=== PATIENT | female | born 1945 | race Caucasian/White ===

== ENCOUNTER 2019-01-06 06:19 | Day surgery (SDC) | payer MEDICARE ==
[2019-01-06] MEDS ORDERED: Lactated Ringers 1,000 ML IV SCH (06:30)
[2019-01-06] MEDS ORDERED: DIPRIVAN 200 MG/20 ML IV ONE ×2 (08:15→08:48)
[2019-01-06] MEDS ORDERED: Ketamine HCl 50 MG/ML ONE (08:15)
--- NOTE | 2019-01-06 08:17 | HP ---
DATE OF SURGERY: 01/06/2019 ANTICIPATED PROCEDURE: Colonoscopy. HISTORY OF PRESENT ILLNESS: The patient had polyps in the past and presents for five year follow up. The patient also has history of breast cancer. PAST MEDICAL HISTORY: ALLERGIES: NONE. MEDICATIONS: Lisinopril. PAST SURGICAL HISTORY: Neck, back, open heart surgery. SOCIAL HISTORY: Negative. FAMILY HISTORY: Negative. REVIEW OF SYSTEMS: Diabetes. Heart disease. Hypertension. PHYSICAL EXAMINATION: VITAL SIGNS: Normal. CHEST: Clear. COR: Regular. ABDOMEN: Satisfactory. IMPRESSION: History of polyps and history of breast cancer. PLAN: Colonoscopy.
[2019-01-06] MEDS ORDERED: ROBINUL ONE (08:44)
[2019-01-06] MEDS ORDERED: ATROPINE SULFATE 1MG ONE (08:48)
[2019-01-06 09:37] VITALS: BP 125/83; PULSE 92; O2SAT 97
--- NOTE | 2019-01-06 10:04 | OP ---
SURGERY DATE/TIME: 01/06/2019 0832 PREOPERATIVE DIAGNOSIS: Polyps. POSTOPERATIVE DIAGNOSES: 1) One polyp. 2) Severe diverticulosis sigmoid PROCEDURES: 1) Colonoscopy complete to cecum. 2) Hot polypectomy x1. SURGEON: Royce Hinds M.D. ANESTHESIA: MAC. COMPLICATIONS: None. CONDITION: Stable. INDICATION: A patient requiring evaluation. DESCRIPTION OF PROCEDURE: Taken to endoscopy. MAC sedation provided. Excellent anesthesia was present. She did have bradycardia once during the procedure. Anal digital examination satisfactory. Scope advanced to the cecum. Base of cecum, ileocecal valve satisfactory. Just an inch above the ileocecal valve was an 8 mm polyp taken with hot biopsy forceps to extinction. On circumferential withdrawal ascending, hepatic, transverse, splenic, descending normal. Severe diverticulosis of sigmoid. Rectum and anus normal. IMPRESSION: One polyp. PLAN: Follow up in three years.
== END 2019-01-06 09:51 | disposition home or self-care (01) ==
LOC: SDC 06:19
PROVIDERS: ATTEND Surgery
DX: Z12.11 Encounter for screening for malignant neoplasm of colon (principal); D12.0 Benign neoplasm of cecum; K57.30 Diverticulosis of large intestine without perforation or abscess without bleeding; Z86.010 Personal history of colon polyps; Z85.3 Personal history of malignant neoplasm of breast; E11.9 Type 2 diabetes mellitus without complications; I10 Essential (primary) hypertension; I51.9 Heart disease, unspecified
CPT/HCPCS: 82962; 88305; 99100; J0461; J2704

== ENCOUNTER 2021-03-20 15:54 | Emergency (ER) | payer MEDICARE ==
[2021-03-20 16:27] VITALS: O2SAT 97
[2021-03-20] MEDS ORDERED: TORAdol 30 mg Injection IM ONE (16:43)
[2021-03-20] MEDS ORDERED: Adacel Vial IM ONE ×2 (16:43→16:45)
[2021-03-20] MEDS ORDERED: TORAdol 30 mg Injection ONE (16:45)
--- NOTE | 2021-03-20 16:49 | ERPHSYRPT ---
- History of Present Illness Source: patient Patient Subjective Stated Complaint: laceration to R lower leg Triage Nursing Assessment: pt to ED c/o laceration and pain to L lower leg. pt states she was moving a metal bed frame and dropped it on her leg. is on blood thinners. bleeding controlled on arrival. ambulatory on arrival from to bed with steady gate. swelling and bruising noted to outer R foot and 3 cm crescent shaped skin tear noted to R upper calf. rates 9/10 pain. "my toes feel kind of funny." color, temp, pulses, cap refil all WNL. Physician History: 75 yo wf w R posterior calf and R foot pain s/p blow w metal bed frame. Pt has a skin tear R posterior calf. Pt needs tetanus. She denies fall/New C,T, L-spine pain/head injury-LOC/chest pain/hip pain. Method of Injury: direct blow Occurred: just prior to arrival Quality: constant Severity of Pain-Max: mild Severity of Pain-Current: mild Lower Extremities Pain: leg: right, foot: right Modifying Factors: Improves With: movement Associated Symptoms: No unable to bear weight, No dizzy, No fainted, No seizure, No snapping sensation, No popping sensation Allergies/Adverse Reactions: No Known Drug Allergies Allergy (Verified 03/20/21 16:27) Home Medications: Clopidogrel Bisulfate 75 mg [PLAVIX 75 MG Tablet] 75 mg PO UD 01/13/15 [History] Furosemide [Lasix] 40 mg PO DAILY 01/13/15 [History] Hydrocodone/APAP 10/325 mg [[place] 10/325 MG TableT] 1 tab PO Q4HPRN PRN 01/13/15 [History] Insulin Regular, Human [Novolin R] 5 unit IJ BID 01/13/15 [History] Carvedilol [Coreg] 25 mg PO BID 07/25/15 [History] Tramadol HCl 50 mg [Ultram 50 mg] 50 mg PO TID 07/25/15 [History] Ferrous Sulfate 325 mg PO UD 12/31/18 [History] Insulin Degludec [Tresiba] 40 unit SQ HS 12/31/18 [History] Multivitamin/Iron/Folic Acid [Centrum Adults Tablet] 1 each PO DAILY 12/31/18 [History] Nitroglycerin 0.4 mg Tablet [Nitrostat 0.4 MG Tablet] 0.4 mg SL UD 12/31/18 [History] Rosuvastatin Calcium [Crestor] 5 mg PO DAILY 12/31/18 [History] lisinopriL [Zestril] 2.5 mg PO DAILY 12/31/18 [History] Hx Tetanus, Diphtheria Vaccination/Date Given: No Hx Influenza Vaccination/Date Given: Yes Hx Pneumococcal Vaccination/Date Given: Yes Immunizations Up to Date: Yes Travel Risk - International Travel Have you traveled outside of the country in past 3 weeks: No - Coronavirus Screening Are you exhibiting any of the following symptoms?: No Close contact with a COVID-19 positive Pt in past 14-21 Days: No - Vaccine Status Have you recieved a Covid-19 vaccination: Yes Construction 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: 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 - Vaccination Dates Date of 2cond Vaccination (if applicable): unknown - Review of Systems Constitutional: No Symptoms Eyes: No Symptoms Ears, Nose, & Throat: No Symptoms Respiratory: No Symptoms Cardiac: No Symptoms Abdominal/Gastrointestinal: No Symptoms Genitourinary Symptoms: No Symptoms Skin: No Symptoms Neurological: No Symptoms Psychological: No Symptoms, Hallucinations Hematologic/Lymphatic: No Symptoms Immunological/Allergic: No Symptoms - Past Medical History Pertinent Past Medical History: Yes Neurological History: No Pertinent History ENT History: No Pertinent History Cardiac History: Congestive Heart Failure, Myocardial Infarction ([place]) Respiratory History: No Pertinent History Endocrine Medical History: Diabetes Type II Musculoskeletal History: No Pertinent History GI Medical History: No Pertinent History History: No Pertinent History Psycho-Social History: No Pertinent History Female Reproductive Disorders: Breast Cancer Other Medical History: breast mastectomy shyam. 8yrs ago - Past Surgical History Past Surgical History: Yes Neuro Surgical History: No Pertinent History Cardiac: CABG, Cardiac Catheterization Respiratory: No Pertinent History Gastrointestinal: No Pertinent History Genitourinary: No Pertinent History Musculoskeletal: Orthopedic Surgery Female Surgical History: Hysterectomy, Mastectomy Other Surgical History: colonoscopy, shyam mastectomy 8 yrs ago,back ruptured disc in neck and back fusion - Social History Smoking Status: Never smoker Exposure to second hand smoke: No Drug Use: none Patient Lives Alone: No Significant Family History: no pertinent family hx - Female History Hx Now: No - Nursing Vital Signs Nursing Vital Signs: Initial Vital Signs Pulse Rate 87 03/20/21 16:15 Respiratory Rate 17 09/29/21 16:15 Blood Pressure 141/74 03/20/21 16:15 O2 Sat by Pulse Oximetry 97 03/20/21 16:15 Pain Scale Pain Intensity 6 Mildly hypertensive - Physical Exam General Appearance: no apparent distress Eyes, Ears, Nose, Throat Exam: normal ENT inspection, TMs normal, pharynx normal, moist mucous membranes Neck Exam: normal inspection, non-tender, supple, full range of motion, No Brudzinski, No Kernig's, No meningismus Cardiovascular/Respiratory Exam: chest non-tender, regular rate/rhythm, heart sounds normal, no respiratory distress, rales (Faint R base) Gastrointestinal/Abdominal Exam: non-tender, soft Back Exam: normal inspection, normal range of motion, No CVA tenderness, No vertebral tenderness Hips Exam: bilateral: non-tender, normal inspection, normal range of motion, no evidence of injury Legs Exam: right leg: soft tissue tenderness (Mild R calf ttp w small skin tear x2) Knees Exam: bilateral knee: non-tender, normal inspection, normal range of motion, no evidence of injury Ankle Exam: bilateral ankle: non-tender, normal inspection, normal range of motion, no evidence of injury Foot Exam: right foot: bone tenderness (R lateral foot/Mild edema/No deformity/Good pedal pulse, distal sensation, and capillary return) Neuro/Tendon Exam: normal sensation, normal motor functions, normal tendon functions, responds to pain, no evidence tendon injury, No motor deficit, No sensory deficit Mental Status Exam: alert, oriented x 3, cooperative Skin Exam: normal color, warm, dry SpO2 Interpretation: normal SpO2: 97 O2 Delivery: Room Air - Course Nursing assessment & vital signs reviewed: Yes - Radiology Exams Foot X-ray Interpretation: Interpreted by me (R foot neg per ER read) Lower Leg X-ray Interpretation: Interpreted by me (R tib-fib neg per ER read) Ordered Tests: Active Orders 24 hr Category Date Time Status FOOT (MINIMUM 3 VIEWS) Stat Exams 03/20/21 17:20 Taken LOWER LEG Stat Exams 03/20/21 16:42 Taken Medication Summary Discontinued Medications Generic Name Dose Route Start Last Admin Trade Name Freq PRN Reason Stop Dose Admin Diphtheria/Tetanus/Acell Pertussis 0.5 ml 03/20/21 16:43 03/20/21 16:49 Adacel Vial IM 03/20/21 16:44 0.5 ml .ONCE ONE Administration Diphtheria/Tetanus/Acell Pertussis Confirm 03/20/21 16:45 Adacel Vial Administered 03/20/21 16:46 Dose 0.5 ml IM .STK-MED ONE Ketorolac Tromethamine 30 mg 03/20/21 16:43 03/20/21 16:50 Toradol 30 Mg Injection IM 03/20/21 16:44 30 mg STAT ONE Administration Ketorolac Tromethamine Confirm 03/20/21 16:45 Toradol 30 Mg Injection Administered 03/20/21 16:46 Dose 30 mg .ROUTE .STK-MED ONE - Progress Progress: improved Progress Note: 03/20/21 17:32 Tdap given 30mg IM Toradol R posterior calf skin tear/prepped w hibiclens/steristripped per nursing/NVI Counseled pt/family regarding: diagnosis, need for follow-up, rad results - Departure Departure Disposition: Home Clinical Impression: Skin tear, Foot contusion, Contusion of right calf Condition: Stable Critical Care Time: No Referrals: MARLA MCKEON, TELECOMMUNICATIONS CABLE JOINTER [Primary Care Provider] - Instructions: Wound Care (DC), Contusion (DC) Additional Instructions: Keep skin tear dry for 2 days, then wash 1-2 times a day with soap/water Keep steri-strips on until they fall off or 2 weeks Watch for signs of infection-redness/pain/pus/temperature greater than 100.5 Ice to contusions for 12-24 hours Tylenol as needed for pain Weight bearing as tolerated
[2021-03-20 17:48] VITALS: BP 151/64; PULSE 88
--- NOTE | 2021-03-21 09:00 | XRAY ---
Indication: Pain following injury. Comparison: None 2 portable views right lower leg demonstrates mild osteopenia and small heel spurs. No other bony, articular, or soft tissue abnormalities.
--- NOTE | 2021-03-21 09:00 | XRAY ---
Indication: Pain following injury. Comparison: None 3 portable views right foot demonstrates mild osteopenia, moderate 1st MTP degenerative arthropathy, small 5th metatarsal head spur, and small heel spurs. No other bony, articular, or soft tissue abnormalities.
== END 2021-03-20 17:48 | disposition home or self-care (01) ==
LOC: ED 15:54
DX: S81.811A Laceration without foreign body, right lower leg, initial encounter (principal); S90.31XA Contusion of right foot, initial encounter; S80.11XA Contusion of right lower leg, initial encounter; W22.8XXA Striking against or struck by other objects, initial encounter; Z79.01 Long term (current) use of anticoagulants; Z79.899 Other long term (current) drug therapy; I50.9 Heart failure, unspecified; E11.9 Type 2 diabetes mellitus without complications; Z95.1 Presence of aortocoronary bypass graft
CPT/HCPCS: 73590; 73630; 90471; 90715; 96372; 99284; J1885

== ENCOUNTER 2022-02-23 18:27 | Emergency (ER) | payer MEDICARE ==
--- NOTE | 2022-02-23 18:46 | ERPHSYRPT ---
- History of Present Illness Source: patient Exam Limitations: no limitations Timing/Duration: today Severity: mild Associated Symptoms: denies symptoms Hx Tetanus, Diphtheria Vaccination/Date Given: No Hx Influenza Vaccination/Date Given: Yes Hx Pneumococcal Vaccination/Date Given: Yes <KENNETH HOWARD - Last Filed: 02/23/22 18:46> <VI FRANCO GilaHi - Last Filed: 02/23/22 19:33> - History of Present Illness Time Seen by Provider: 02/23/22 18:44 Physician History: Patient is 76-year-old female patient came to the emergency room with complaining of some burning micturition painful urination and lower back pain. Patient has a significant past medical history of hypertension diabetes. Patient is scheduled for epidural injection for her chronic back pain in next 2 days so she is concerned and that is why she came to the emergency room. She denies any fever chills nausea or vomiting. (KENNETH HOWARD) Allergies/Adverse Reactions: No Known Drug Allergies Allergy (Verified 02/23/22 18:36) Home Medications: Clopidogrel Bisulfate [PLAVIX Tablet] 75 mg PO UD 01/13/15 [History] Furosemide [Lasix] 40 mg PO DAILY 01/13/15 [History] Hydrocodone/APAP 10/325 mg [[place] 10/325 MG TableT] 1 tab PO Q4HPRN PRN 01/13/15 [History] Insulin Regular, Human [Novolin R] 5 unit IJ BID 01/13/15 [History] Carvedilol [Coreg] 25 mg PO BID 07/25/15 [History] Tramadol HCl 50 mg [Ultram 50 mg] 50 mg PO TID 07/25/15 [History] Ferrous Sulfate 325 mg PO UD 12/31/18 [History] Insulin Degludec [Tresiba] 40 unit SQ HS 12/31/18 [History] Multivitamin/Iron/Folic Acid [Centrum Adults Tablet] 1 each PO DAILY 12/31/18 [History] Nitroglycerin 0.4 mg Tablet [Nitrostat 0.4 MG Tablet] 0.4 mg SL UD 12/31/18 [History] Rosuvastatin Calcium [Crestor] 5 mg PO DAILY 12/31/18 [History] lisinopriL [Zestril] 2.5 mg PO DAILY 12/31/18 [History] Travel Risk - Vaccine Status Have you recieved a Covid-19 vaccination: Yes 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 - Vaccination Dates Date of 2cond Vaccination (if applicable): unknown <ANITAKENNETH - Last Filed: 02/23/22 18:46> - Review of Systems Constitutional: No Fever, No Chills Eyes: No Symptoms Ears, Nose, & Throat: No Symptoms Respiratory: No Cough, No Dyspnea Cardiac: No Chest Pain, No Edema, No Syncope Abdominal/Gastrointestinal: No Abdominal Pain, No Nausea, No Vomiting, No Diarrhea Genitourinary Symptoms: Dysuria, Frequency, Hesitancy, Urgency Musculoskeletal: No Back Pain, No Neck Pain Skin: No Rash Neurological: No Dizziness, No Focal Weakness, No Sensory Changes Psychological: No Symptoms Endocrine: No Symptoms All Other Systems: Reviewed and Negative <ANITA - Last Filed: 02/23/22 18:46> - Past Medical History Pertinent Past Medical History: Yes Neurological History: No Pertinent History ENT History: No Pertinent History Cardiac History: Congestive Heart Failure, Myocardial Infarction ([place]) Respiratory History: No Pertinent History Endocrine Medical History: Diabetes Type II Musculoskeletal History: No Pertinent History GI Medical History: No Pertinent History History: No Pertinent History Psycho-Social History: No Pertinent History Female Reproductive Disorders: Breast Cancer Other Medical History: breast mastectomy shyam. 8yrs ago - Past Surgical History Past Surgical History: Yes Neuro Surgical History: No Pertinent History Cardiac: CABG, Cardiac Catheterization Respiratory: No Pertinent History Gastrointestinal: No Pertinent History Genitourinary: No Pertinent History Musculoskeletal: Orthopedic Surgery Female Surgical History: Hysterectomy, Mastectomy Other Surgical History: colonoscopy, shyam mastectomy 8 yrs ago,back ruptured disc in neck and back fusion - Social History Smoking Status: Never smoker Exposure to second hand smoke: No Drug Use: none Patient Lives Alone: No Significant Family History: no pertinent family hx <ANITA - Last Filed: 02/23/22 18:46> - Physical Exam General Appearance: no apparent distress, alert Eye Exam: PERRL/EOMI, eyes nml inspection Ears, Nose, Throat Exam: normal ENT inspection, TMs normal, pharynx normal, moist mucous membranes Neck Exam: normal inspection, non-tender, supple, full range of motion Respiratory Exam: normal breath sounds, lungs clear, No respiratory distress Cardiovascular Exam: regular rate/rhythm, normal heart sounds, normal peripheral pulses Gastrointestinal/Abdomen Exam: soft, normal bowel sounds, No tenderness, No mass Back Exam: normal inspection, normal range of motion, No CVA tenderness, No ve rtebral tenderness Extremity Exam: normal inspection, normal range of motion, pelvis stable Neurologic Exam: alert, oriented x 3, cooperative, normal mood/affect, nml cerebellar function, nml station & gait, sensation nml, No motor deficits Skin Exam: normal color, warm, dry, No rash Lymphatic Exam: No adenopathy <ANITA,KENNETH - Last Filed: 02/23/22 18:46> - Nursing Vital Signs Nursing Vital Signs: Initial Vital Signs Temperature 97.4 F 02/23/22 18:40 Pulse Rate 74 02/23/22 18:40 Respiratory Rate 18 02/23/22 18:40 Blood Pressure 153/51 02/23/22 18:40 O2 Sat by Pulse Oximetry 96 02/23/22 18:40 Pain Scale Pain Intensity 8 - Course Nursing assessment & vital signs reviewed: Yes <ANITA,KENNETH - Last Filed: 02/23/22 18:46> Ordered Tests: Active Orders 24 hr Category Date Time Status BMP Stat Lab 02/23/22 18:56 Completed CBC W DIFF Stat Lab 02/23/22 18:56 Completed CULTURE,URINE Stat Lab 02/23/22 18:44 Received UA W/RFX CULTURE Stat Lab 02/23/22 18:44 Completed Medication Summary Discontinued Medications Generic Name Dose Route Start Last Admin Trade Name Aneta PRN Reason Stop Dose Admin Ceftriaxone Sodium 1,000 mg 02/23/22 19:17 02/23/22 19:25 Ceftriaxone Sodium 1000 Mg Inj Vial IM 02/23/22 19:18 1,000 mg STAT ONE Administration Ceftriaxone Sodium Confirm 02/23/22 19:24 Ceftriaxone Sodium 1000 Mg Inj Vial Administered 02/23/22 19:25 Dose 1,000 mg .ROUTE .STK-MED ONE Lab/Rad Data: Laboratory Result Diagrams 02/23/22 18:56 02/23/22 18:56 Laboratory Results 02/23/22 02/23/22 02/23/22 Range/Units 18:56 18:56 18:44 WBC 10.8 H (4.0-10.5) x10^3/uL RBC 4.10 (4.1-5.4) x10^6/uL Hgb 12.3 (12.0-16.0) g/dL Hct 38.0 (35-47) % MCV 92.7 (78-100) fL MCH 30.0 (26-32) pg MCHC 32.4 (32-36) g/dL RDW 12.0 (11.5-14.0) % Plt Count 173 (150-450) x10^3/uL MPV 9.5 (7.5-11.0) fL Gran % 71.4 H (36.0-66.0) % Immature Gran % (Auto) 0.6 H (0.00-0.4) % Nucleat RBC Rel Count 0.0 (0.00-0.1) % Eos # (Auto) 0.11 (0-0.5) x10^3/uL Immature Gran # (Auto) 0.06 H (0.00-0.03) x10^3u/L Absolute Lymphs (auto) 1.99 (1.0-4.6) x10^3/uL Absolute Monos (auto) 0.90 (0.0-1.3) x10^3/uL Absolute Nucleated RBC 0.00 (0.00-0.01) x10^3u/L Lymphocytes % 18.5 L (24.0-44.0) % Monocytes % 8.3 (0.0-12.0) % Eosinophils % 1.0 (0.00-5.0) % Basophils % 0.2 (0.0-0.4) % Absolute Granulocytes 7.70 H (1.4-6.9) x10^3/uL Basophils # 0.02 (0-0.4) x10^3/uL Sodium 135 L (137-145) mmol/L Potassium 4.7 (3.5-5.1) mmol/L Chloride 97 L (98-107) mmol/L Carbon Dioxide 32 H (22-30) mmol/L Anion Gap 10.3 (5-15) MEQ/L BUN 21 H (7-17) mg/dL Creatinine 1.04 (0.52-1.04) mg/dL Estimated GFR 54.9 ML/MIN Glucose 91 (74-106) mg/dL Calcium 9.0 (8.4-10.2) mg/dL Urinalys Dipstick Clnc MAIN LAB Urine Color ORANGE (YELLOW) Urine Appearance SLIGHTLY CLOUDY (CLEAR) Urine pH 6.5 (5-6) Ur Specific [place] 1.010 (1.005-1.025) POC Urine Protein Conf TRACE (Negative) Urine Ketones NEGATIVE (NEGATIVE) Urine Nitrite POSITIVE (NEGATIVE) Urine Bilirubin NEGATIVE (NEGATIVE) Urine Urobilinogen 1 (0-1) mg/dL Urine Leukocytes SMALL (NEGATIVE) Urine WBC (Auto) >100 (0-5) /HPF Urine RBC (Auto) 6-10 (0-2) /HPF U Epithel Cells (Auto) RARE (FEW) /HPF Urine Bacteria (Auto) RARE (NEGATIVE) /HPF Urine RBC TRACE-INTACT (0-5) Osmel/ul Unidentified Crystals 2-5 (NEGATIVE) /HPF Urine Mucus (Auto) SLIGHT (NEGATIVE) /HPF Ur Culture Indicated? YES Urine Glucose 100 (NEGATIVE) mg/dL - Progress Progress: unchanged Counseled pt/family regarding: lab results, diagnosis, need for follow-up <VI FRANCO - Last Filed: 02/23/22 19:33> <KENNETH HOWARD - Last Filed: 02/23/22 18:46> - Departure Departure Disposition: Home Critical Care Time: No <VI FRANCO - Last Filed: 02/23/22 19:33> - Departure Clinical Impression: UTI (urinary tract infection) Condition: Stable Referrals: MARLA MCKEON BRANCH SERVICE ASSOCIATE [Primary Care Provider] - Follow up/PCP as directed Additional Instructions: Drink plenty of fluids. Take your antibiotics as prescribed. Call your pain specialist on 02/25/2022 for further recommendations regarding your upcoming procedure. Prescriptions: Levofloxacin [Levaquin 500 MG Tablet] 500 mg PO DAILY #7 tablet
[2022-02-23 18:47] VITALS: BP 153/51
[2022-02-23 18:58] LABS: Basophil (Absolute #) 0.02 x10^3/uL (0-0.4); Eosinophil (Absolute #) 0.11 x10^3/uL (0-0.5); Hemoglobin 12.3 g/dL (12.0-16.0); Lymphocyte (Absolute #) 1.99 x10^3/uL (1.0-4.6); Lymphocytes % 18.5 % (24.0-44.0); Mean Cell Volume 92.7 fL (78-100); Mean Corpuscular Hgb Concent. 32.4 g/dL (32-36); Mean Platelet Volume 9.5 fL (7.5-11.0); Monocytes % 8.3 % (0.0-12.0); Neutrophil % 71.4 % (36.0-66.0); Platelet Count 173 x10^3/uL (150-450); White Blood Count 10.8 x10^3/uL (4.0-10.5)
[2022-02-23 19:01] LABS: Appearance SLIGHTLY CLOUDY (CLEAR); Bilirubin NEGATIVE (NEGATIVE); Dipstick done @ ? MAIN LAB; Glucose 100 mg/dL (NEGATIVE); Ketones NEGATIVE (NEGATIVE); Nitrite POSITIVE (NEGATIVE); Ph 6.5 (5-6); Protein,Urine Dip TRACE (Negative); RBC TRACE-INTACT Ery/ul (0-5); Urobilinogen 1 mg/dL (0-1)
[2022-02-23 19:04] LABS: Bacteria RARE /HPF (NEGATIVE); Epithelial Cells RARE /HPF (FEW); Mucus SLIGHT /HPF (NEGATIVE); WBC >100 /HPF (0-5)
[2022-02-23 19:05] LABS: Urine Cultured Indicated? YES
[2022-02-23 19:10] LABS: ANION GAP 10.3 MEQ/L (5-15); Creatinine 1 1.04 mg/dL (0.52-1.04); EST GLOMERULAR FILTRATION RATE 54.9 ML/MIN; Potassium 4.7 mmol/L (3.5-5.1)
[2022-02-23] MEDS ORDERED: Rocephin 1000 MG INJ IM ONE (19:17)
[2022-02-23] MEDS ORDERED: Rocephin 1000 MG INJ ONE (19:24)
[2022-02-23] MEDS ORDERED: Levofloxacin 500 MG Tablet PO ONE (19:33)
[2022-02-23] MEDS ORDERED: Levofloxacin 500 MG Tablet ONE (19:37)
[2022-02-23 19:48] VITALS: PULSE 78; O2SAT 98
== END 2022-02-23 19:42 | disposition home or self-care (01) ==
LOC: ED 18:27
DX: N39.0 Urinary tract infection, site not specified (principal); R30.0 Dysuria; M54.50 Low back pain, unspecified; E11.9 Type 2 diabetes mellitus without complications; I11.0 Hypertensive heart disease with heart failure; I50.9 Heart failure, unspecified; Z79.02 Long term (current) use of antithrombotics/antiplatelets; Z79.4 Long term (current) use of insulin; Z79.899 Other long term (current) drug therapy
CPT/HCPCS: 36415; 80048; 81015; 85025; 87077; 87086; 87186; 96372; 99283; J0696; A9270-GY

== ENCOUNTER 2022-03-26 07:08 | Day surgery (SDC) | payer MEDICARE ==
[2022-03-26] MEDS ORDERED: Marcaine Mpf 0.5% Vial 30 Ml IJ ONE (07:09)
[2022-03-26] MEDS ORDERED: Depo-Medrol 40 MG/ML IM ONE (07:09)
[2022-03-26] MEDS ORDERED: DIPRIVAN 200 MG/20 ML IV ONE (09:22)
[2022-03-26] MEDS ORDERED: Lactated Ringers 1,000 ML IV ONE (10:17)
--- NOTE | 2022-03-26 11:24 | XRAY ---
Indication: Bilateral L4-S1 MBB. Intraoperative fluoroscopy provided for 19 seconds. Single digital spot image submitted for interpretation demonstrates posterior needle tips projecting over the expected left and right L4-S1 nerve roots. Correlate with intraoperative findings/report.
--- NOTE | 2022-03-26 13:23 | XRAY ---
19 seconds of fluoroscopy was used in surgery for a bilateral L4-S1 MBB.
== END 2022-03-26 09:50 | disposition home or self-care (01) ==
LOC: SDC-PAIN 07:08
PROVIDERS: ATTEND Psychiatry & Neurology Pain Medicine
DX: M47.816 Spondylosis without myelopathy or radiculopathy, lumbar region (principal); E11.9 Type 2 diabetes mellitus without complications; Z79.899 Other long term (current) drug therapy
CPT/HCPCS: 64493; 64494; 72020; 77002; 82947; J1030; J2704

== ENCOUNTER 2022-04-23 06:27 | Day surgery (SDC) | payer MEDICARE ==
[2022-04-23] MEDS ORDERED: Xylocaine 1% Vial 30 ML PF IJ ONE (06:28)
[2022-04-23] MEDS ORDERED: TYLENOL EXTRA STRENGTH 500 MG PO ONE (06:28)
[2022-04-23] MEDS ORDERED: Depo-Medrol 40 MG/ML IM ONE ×2 (06:28)
[2022-04-23] MEDS ORDERED: BUPIVACAINE 0.5% VIAL IJ ONE ×2 (06:28)
[2022-04-23] MEDS ORDERED: DIPRIVAN 200 MG/20 ML IV ONE (08:47)
[2022-04-23] MEDS ORDERED: Lactated Ringers 1,000 ML IV ONE (09:44)
--- NOTE | 2022-04-23 11:03 | XRAY ---
Indication: Bilateral L4-S1 MBB. Intraoperative fluoroscopy provided for 17 seconds. Single digital spot image submitted for interpretation demonstrates posterior needle tips projecting over the expected left and right L4-S1 nerve roots. Correlate with intraoperative findings/report. Incidental L5 laminectomy.
--- NOTE | 2022-04-23 11:33 | XRAY ---
17 seconds fluoroscopy time in surgery for bilateral L4-S1 MBB.
== END 2022-04-23 09:08 | disposition home or self-care (01) ==
LOC: SDC-PAIN 06:27
PROVIDERS: ATTEND Psychiatry & Neurology Pain Medicine
DX: M47.816 Spondylosis without myelopathy or radiculopathy, lumbar region (principal); Z79.899 Other long term (current) drug therapy
CPT/HCPCS: 64493; 64494; 72020; 77002; 82947; J1030; J2001; J2704; A9270-GY

== ENCOUNTER 2022-06-25 06:49 | Day surgery (SDC) | payer MEDICARE ==
[~2022-06-25 06:49] MED LIST: Pepcid 20 MG VIAL IV ONE
[2022-06-25] MEDS ORDERED: LIDOCAINE HCL 1% 50 MG/5 ML VL PF IJ ONE (06:50)
[2022-06-25] MEDS ORDERED: BUPIVACAINE 0.5% VIAL IJ ONE (06:50)
[2022-06-25] MEDS ORDERED: Depo-Medrol 40 MG/ML IM ONE (06:50)
[2022-06-25] MEDS ORDERED: DIPRIVAN 200 MG/20 ML IV ONE (08:14)
--- NOTE | 2022-06-25 09:11 | XRAY ---
Indication: Right L4-S1 RFA. Intraoperative fluoroscopy provided for 23 seconds. 4 digital spot images submitted for interpretation demonstrates posterior needle tips projecting over the expected right L4-S1 nerve roots. Correlate with intraoperative findings/report.
--- NOTE | 2022-06-25 09:13 | XRAY ---
23 seconds of fluoroscopy was used in surgery for a right L4-S1 RFA.
[2022-06-25] MEDS ORDERED: Lactated Ringers 1,000 ML IV ONE (10:10)
== END 2022-06-25 08:50 | disposition home or self-care (01) ==
LOC: SDC-PAIN 06:49
PROVIDERS: ATTEND Psychiatry & Neurology Pain Medicine
DX: M47.816 Spondylosis without myelopathy or radiculopathy, lumbar region (principal); Z79.899 Other long term (current) drug therapy
CPT/HCPCS: 64635; 64636; 72100; 77002; 82947; 99100; J1030; J2001; J2704

== ENCOUNTER 2022-07-09 06:43 | Day surgery (SDC) | payer MEDICARE ==
[2022-07-09] MEDS ORDERED: LIDOCAINE HCL 1% 50 MG/5 ML VL PF IJ ONE (06:44)
[2022-07-09] MEDS ORDERED: Depo-Medrol 40 MG/ML IM ONE (06:44)
[2022-07-09] MEDS ORDERED: BUPIVACAINE 0.5% VIAL IJ ONE (06:44)
[2022-07-09 07:09] LABS: POCT GLUCOSE 176 mg/dL (74 to 106)
[2022-07-09] MEDS ORDERED: DIPRIVAN 200 MG/20 ML IV ONE (08:06)
[2022-07-09] MEDS ORDERED: Ephedrine Sulfate 50 MG/ML ONE (08:25)
--- NOTE | 2022-07-09 09:52 | XRAY ---
Indication: Left L4-S1 RFA. Intraoperative fluoroscopy provided for 25 seconds. 4 digital spot images submitted for interpretation demonstrates posterior needle tips projecting over the expected left L4-S1 nerve roots. Correlate with intraoperative findings/report.
--- NOTE | 2022-07-09 09:54 | XRAY ---
25 seconds of fluoroscopy was used in surgery for a left L4-S1 RFA.
[2022-07-09] MEDS ORDERED: Lactated Ringers 1,000 ML IV ONE (13:09)
== END 2022-07-09 08:53 | disposition home or self-care (01) ==
LOC: SDC-PAIN 06:43
PROVIDERS: ATTEND Psychiatry & Neurology Pain Medicine
DX: M47.816 Spondylosis without myelopathy or radiculopathy, lumbar region (principal); Z79.899 Other long term (current) drug therapy
CPT/HCPCS: 64635; 64636; 72100; 77002; 82947; 99100; J1030; J2001; J2704

== ENCOUNTER 2022-10-01 07:28 | Day surgery (SDC) | payer MEDICARE ==
[2022-10-01] MEDS ORDERED: Depo-Medrol 40 MG/ML IM ONE (07:29)
[2022-10-01] MEDS ORDERED: BUPIVACAINE 0.5% VIAL IJ ONE (07:29)
[2022-10-01] MEDS ORDERED: DIPRIVAN 200 MG/20 ML IV ONE (08:41)
--- NOTE | 2022-10-01 09:57 | XRAY ---
Indication: Bilateral SI joint injection. Intraoperative fluoroscopy provided for 15 seconds. 4 digital spot image submitted for interpretation demonstrates posterior needle tip projecting over the left and right SI joint. Correlate with intraoperative findings/report.
[2022-10-01] MEDS ORDERED: Lactated Ringers 1,000 ML IV ONE (11:42)
--- NOTE | 2022-10-01 12:22 | XRAY ---
15 seconds of fluoroscopy was used in surgery for a bilateral sacroiliac joint injection.
== END 2022-10-01 09:15 | disposition home or self-care (01) ==
LOC: SDC-PAIN 07:28
PROVIDERS: ATTEND Psychiatry & Neurology Pain Medicine
DX: M46.1 Sacroiliitis, not elsewhere classified (principal); Z79.899 Other long term (current) drug therapy
CPT/HCPCS: 01992; 27096; 72202; 77002; 82947; 99100; G0260; J1030; J2704

== ENCOUNTER 2024-08-20 12:12 | Observation (INO) | payer MEDICARE ==
[2024-08-20] MEDS ORDERED: D50W 50 ml Abboject IV ONE (12:26)
[2024-08-20] MEDS ORDERED: PLAVIX Tablet ONE (12:34)
[2024-08-20] MEDS: PLAVIX Tablet PO ONE (12:38)
--- NOTE | 2024-08-20 12:43 | XRAY ---
CLINICAL HISTORY: confusion COMPARISON: None. TECHNIQUE: An axial non-contrast CT scan of the brain was performed from the skull base to the high parietal region. One of the following dose-reduction techniques was utilized for this exam. Automated exposure control, adjustment of the mA and/or kV according to patient size, and use of iterative reconstruction. CT scan performed according to ALARA principles. Automated exposure control used during the exam. FINDINGS: A few tiny ill-defined [id number] areas are noted bilaterally in the subcortical and deep white matter, right more than left more in the frontal lobe, suggesting microvascular ischemic changes. The ventricular system, cortical sulci, and basal cisterns are prominent and consistent with senile changes. The brain parenchyma shows a normal appearance. Ortega-white matter differentiation is maintained. No midline shifts or deformity. No intracerebral or extra axial hematoma. Normal CT appearance of the posterior fossa structures, namely the cerebellar hemispheres, brainstem, and cerebellar peduncles. The bony structures in the skull base are unremarkable. There are no definite calvarium fractures. Opacification of the bilateral maxillary sinuses and anterior and middle ethmoid cells. Left frontal sinus. Hypoplastic right frontal sinus. Normal-appearing bilateral mastoid air cells IMPRESSION: 1. A few tiny ill-defined [id number] areas are noted bilaterally in the subcortical and deep white matter, right more than left more in the frontal lobe, suggesting microvascular ischemic changes. However, the possibility of underlying age-indeterminate ischemic insult cannot be entirely excluded if clinically warranted, further evaluation with MRI with DWI images can be obtained. 2. No intra or extra-axial hematomas or parenchymal territorial hypodense areas suggest acute ischemic insult. 3. Early changes of stroke may not be detected on a CT scan. If there is a strong clinical suspicion of stroke, then an MRI with diffusion-weighted imaging is suggested. [facility] ER was called at [phone] at 11:34 AM UTILITY HELICOPTER REPAIRER, 08/20/2024, and Dee, a Nurse, was informed regarding the stroke results. Electronically Signed by: Lacy Delgado MD. (08/20/2024 12:38:55 EST)
[2024-08-20] MEDS ORDERED: Sodium Chloride 0.9% 1000 ML 1,000 ML ONE (12:49)
[2024-08-20] MEDS: Sodium Chloride 0.9% 1000 ML 1,000 ML IV SCH (12:52)
[2024-08-20] MEDS: D50W 50 ml Abboject IV ONE (12:53)
[2024-08-20 12:54] LABS: Absolute Neutrophil Ct (ANC) 8.76 x10^3/uL (1.56-6.13); BASOPHIL % 0.1 % (0.1-1.2); Basophil (Absolute #) 0.01 x10^3/uL (0.01-0.08); Eosinophil % 0.3 % (0.7-5.8); Eosinophil (Absolute #) 0.03 x10^3/uL (0.04-0.36); Hematocrit 43.8 % (34.1-44.9); Hemoglobin 14.7 g/dL (11.2-15.7); IMMATURE GRAN # 0.08 x10^3u/L (0.001-0.031); IMMATURE GRAN % 0.8 % (0.001-0.429); Lymphocyte (Absolute #) 0.82 x10^3/uL (1.18-3.74); Lymphocytes % 8.2 % (19.3-51.7); Mean Corpuscular Hemoglobin 29.5 pg (25.6-32.2); Mean Corpuscular Hgb Concent. 33.6 g/dL (32.2-35.5); Mean Platelet Volume 9.9 fL (9.4-12.3); Monocyte (Absolute #) 0.34 x10^3/uL (0.24-0.86); Monocytes % 3.4 % (4.7-12.5); Neutrophil % 87.2 % (34.0-71.1); Platelet Count 220 x10^3/uL (182-369); Red Blood Count 4.98 x10^6/uL (3.93-5.22); Red Cell Distribution Width 12.6 % (11.7-14.4)
[2024-08-20 13:11] LABS: INR 1.13 (0.8-3.0); PROTIME 12.2 SECONDS (9.4-12.5)
--- NOTE | 2024-08-20 13:19 | ERPHSYRPT ---
- History of Present Illness Time Seen by Provider: 08/20/24 13:14 Source: patient, family Exam Limitations: no limitations Patient Subjective Stated Complaint: pt was found on the floor unable to speak or crawl, pt felt as if she had a stroke, pt had her pacemaker/defrilator replaced last week Triage Nursing Assessment: Pt brought to the ER by her grand daughter, rates pain as 9/10 which is chronic from DDD, pulses normal, skin n/c/d, pt was unable to stand or get into or out of a wheelchair without assistance upon arrival, pt reports not being able to speak or really move prior to grand daughter arriving, pt had her pacemaker/defrilator replaced last week, pt now speaking normal, blood sugar found to be 56 upon arrival, no difficulty breathing, denies chest pain Physician History: pt was found on the floor unable to speak or crawl, pt felt as if she had a stroke, pt had her pacemaker/defrilator replaced last week pt was unable to stand or get into or out of a wheelchair without assistance upon arrival, pt reports not being able to speak or really move prior to grand daughter arriving, pt had her pacemaker/defrilator replaced last week, pt now speaking normal, blood sugar found to be 56 upon arrival, no difficulty breathing, denies chest pain 79-year-old female with significant past medical history of degenerative disc disease of the lumbosacral spine history of coronary artery disease hypertension congestive heart failure hyperlipidemia history of ventricular arrhythmias and status post pacemaker defibrillator later placement recently was in her usual state of health at around 11:30 in the morning she called her daughter and told her that she had a stroke and then she fell and could not talk on the phone to her granddaughter show her granddaughter immediately went to her home and she found her on the floor so she brought her into the emergency room. Patient could not walk was complaining of left side weakness and some facial weakness. Patient was immediately got into the CAT scan and after CAT scan patient was able to talk able to give all the information including her birthdate where she lives and also recognizing everybody. She was denying any weakness. She was unable to tell the time when this started happening. She denies any other symptoms including chest pain nausea vomiting headache. She is complaining of lower back pain. Time of Onset/Last Time Seen Normal: unknown Timing/Duration: today Severity: moderate Character of Deficits: new weakness, impaired speech, unable to speak Deficits: decrease ability to stand Baseline/Normal Cognition: alert oriented x 3 Current Cognition: alert oriented x 3 Baseline Gait: walks w/o assistance Associated Symptoms: confusion, loss of consciousness, weakness, numbness/tingling in legs/feet, slurred speech, trouble walking, No fatigue, No fever, No chills, No nausea, No vomiting, No insomnia, No muscle spasms, No paresthesia, No ringing in ears, No seizures, No vision changes, No chest pain, No headache Allergies/Adverse Reactions: No Known Drug Allergies Allergy (Verified 08/20/24 12:43) Home Medications: Clopidogrel Bisulfate [PLAVIX Tablet] 75 mg PO UD 01/13/15 [History] Hydrocodone/APAP 10/325 mg [[place] 10/325 MG TableT] 1 tab PO QID 01/13/15 [History] carvediloL [Coreg] 25 mg PO BID 07/25/15 [History] Ferrous Sulfate 325 mg PO UD 12/31/18 [History] Multivitamin/Iron/Folic Acid [Centrum Adults Tablet] 1 each PO DAILY 12/31/18 [History] Nitroglycerin 0.4 mg Tablet [Nitrostat 0.4 MG Tablet] 0.4 mg SL UD 12/31/18 [History] Rosuvastatin Calcium [Crestor] 5 mg PO DAILY 12/31/18 [History] lisinopriL [Zestril] 5 mg PO DAILY 12/31/18 [History] Insulin Degludec [Tresiba Flextouch U-100] 40 unit SQ HS 08/20/24 [History] Insulin Regular, Human [Humulin R] 5 units SQ TID 08/20/24 [History] Ropinirole HCl 1 mg PO HS 08/20/24 [History] Hx Tetanus, Diphtheria Vaccination/Date Given: No Hx Influenza Vaccination/Date Given: Yes Hx Pneumococcal Vaccination/Date Given: Yes Travel Risk - International Travel Have you traveled outside of the country in past 3 weeks: No - Emerging Infectious Disease Are you exhibiting symptoms associated with any current EIDs: No - Review of Systems Constitutional: Weakness, No Fever, No Chills Eyes: No Symptoms Ears, Nose, & Throat: No Symptoms Respiratory: No Cough, No Dyspnea Cardiac: No Chest Pain, No Edema, No Syncope Abdominal/Gastrointestinal: No Abdominal Pain, No Nausea, No Vomiting, No Diarrhea Genitourinary Symptoms: No Dysuria Musculoskeletal: Back Pain, Fall, No Neck Pain Skin: No Rash Neurological: Focal Weakness, Gait Changes, Speech Changes, No Dizziness, No Headache, No Irritability, No Lethargy, No Paralysis, No Parasthesia, No Seizure, No Sensory Changes, No Tics, No Tremors, No Vertigo Psychological: No Symptoms Endocrine: No Symptoms Hematologic/Lymphatic: No Symptoms All Other Systems: Reviewed and Negative - Past Medical History Pertinent Past Medical History: Yes Neurological History: No Pertinent History ENT History: No Pertinent History Cardiac History: Congestive Heart Failure, Myocardial Infarction (ME) Respiratory History: No Pertinent History Endocrine Medical History: Diabetes Type II Musculoskeletal History: No Pertinent History GI Medical History: No Pertinent History History: No Pertinent History Psycho-Social History: No Pertinent History Female Reproductive Disorders: Breast Cancer Other Medical History: breast mastectomy shyam. 8yrs ago - Past Surgical History Past Surgical History: Yes Neuro Surgical History: No Pertinent History Cardiac: CABG, Cardiac Catheterization, Internal Defibrillator, Pacemaker Respiratory: No Pertinent History Gastrointestinal: No Pertinent History Genitourinary: No Pertinent History Musculoskeletal: Orthopedic Surgery Female Surgical History: Hysterectomy, Mastectomy Other Surgical History: colonoscopy, shyam mastectomy 8 yrs ago,back ruptured disc in neck and back fusion Significant Family History: no pertinent family hx - Social History Smoking Status: Never smoker Exposure to second hand smoke: No Drug Use: none - Social Determinants of Health Will the patient participate in the screening: Yes Do you worry about a steady place to live?: No Do you have any problems with any of the following?: No known problems In the past 12 months,have you had to go without utilities?: No Transportation Issues: No Has anyone in your support network made you feel unsafe?: No Have you or anyone in your house had to go w/o enough food: No - Nursing Vital Signs Nursing Vital Signs: Initial Vital Signs Pulse Rate 71 08/20/24 12:24 Respiratory Rate 21 08/20/24 12:24 Blood Pressure 148/58 08/20/24 12:24 O2 Sat by Pulse Oximetry 97 08/20/24 12:24 Pain Scale Pain Intensity 9 - [place] Coma Scale Best Eye Response ([place]): (4) open spontaneously Best Verbal Response ([place]): (5) oriented Best Motor Response ([place]): (6) obeys commands [place] Total: 15 - Physical Exam General Appearance: no apparent distress, alert Eye Exam: bilateral eye: PERRL, EOMI Ears, Nose, Throat Exam: normal ENT inspection, moist mucous membranes Neck Exam: normal inspection, non-tender, supple Respiratory: normal breath sounds, lungs clear, airway intact, No respiratory distress Cardiovascular: regular rate/rhythm, No edema Gastrointestinal: soft, No tenderness, No distention Back Exam: normal inspection Extremity Exam: normal inspection, No pedal edema Peripheral Pulses: carotid (R): 2+, carotid (L): 2+, femoral (R): 2+, femoral (L): 2+, dorsalis-pedis (R): 2+, dorsalis-pedis (L): 2+ 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, 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 Exam: normal hearing, normal speech, tongue midline Coordination/Gait: normal finger to nose, normal gait Motor/Sensory: no motor deficit, no sensory deficit DTR: bicep (R): 2+, bicep (L): 2+, tricep (R): 2+, tricep (L): 2+, knee (R): 2+, knee (L): 2+, ankle (R): 2+, ankle (L): 2+ Skin Exam: normal color, warm, dry, No rash SpO2 Interpretation: normal SpO2: 97 O2 Delivery: Room Air - Course Nursing assessment & vital signs reviewed: Yes EKG Interpreted by Me: Sinus Rhythm Rhythm Strip: Normal Sinus Rhythm - CT Exams Head CT Interpretation: Tele-radiologist Report Ordered Tests: Active Orders 24 hr Category Date Time Status Radiological Engineer STAT Care 08/20/24 12:29 Active EKG-ER Only STAT Care 08/20/24 12:30 Active IV Insertion STAT Care 08/20/24 12:29 Active NPO (ED) STAT Care 08/20/24 12:29 Active POCT Glucose Check STAT Care 08/20/24 12:29 Active HEAD WITHOUT CONTRAST [CT] Stat Exams 08/20/24 12:13 Completed CBC W DIFF Stat Lab 08/20/24 12:53 Completed CMP Stat Lab 08/20/24 12:53 Completed CULTURE,URINE Stat Lab 08/20/24 12:29 Ordered MAGNESIUM Stat Lab 08/20/24 12:53 Completed NT PRO BNPII Stat Lab 08/20/24 12:53 Completed PROTIME WITH INR Stat Lab 08/20/24 12:53 Completed TROPONIN Q4H Lab 08/20/24 12:53 Completed TROPONIN Q4H Lab 08/20/24 17:02 Completed TROPONIN Q4H Lab 08/20/24 20:45 Ordered UA W/RFX UR CULTURE Stat Lab 08/20/24 12:29 Ordered Medication Summary Generic Name Dose Route Start Last Admin Trade Name Freq PRN Reason Stop Dose Admin Sodium Chloride 1,000 mls @ 100 mls/hr 08/20/24 12:30 08/20/24 12:52 Sodium Chloride 0.9% 1000 Ml IV 09/19/24 12:29 100 mls/hr .Q10H KAREN Administration Discontinued Medications Generic Name Dose Route Start Last Admin Trade Name Freq PRN Reason Stop Dose Admin Clopidogrel Bisulfate 75 mg 08/20/24 12:29 08/20/24 12:38 Clopidogrel Bisulfate 75 Mg Tablet PO 08/20/24 12:30 75 mg STAT ONE Administration Clopidogrel Bisulfate Confirm 08/20/24 12:34 Clopidogrel Bisulfate 75 Mg Tablet Administered 08/20/24 12:35 Dose 75 mg .ROUTE .STK-MED ONE Dextrose Confirm 08/20/24 12:26 Dextrose 50%-Water 50 Ml Abboject Administered 08/20/24 12:27 Dose 50 ml IV .STK-MED ONE Dextrose 50 ml 08/20/24 12:51 08/20/24 12:53 Dextrose 50%-Water 50 Ml Abboject IV 08/20/24 12:52 50 ml STAT ONE Administration Ketorolac Tromethamine 30 mg 08/20/24 13:03 08/20/24 13:27 Ketorolac Tromethamine 30 Mg/Ml Inj IV 08/20/24 13:04 30 mg STAT ONE Administration Ketorolac Tromethamine Confirm 08/20/24 13:26 Ketorolac Tromethamine 30 Mg/Ml Inj Administered 08/20/24 13:27 Dose 30 mg .ROUTE .STK-MED ONE Morphine Sulfate 4 mg 08/20/24 13:02 08/20/24 13:26 Morphine Sulfate 4 Mg/Ml Injection IV 08/20/24 13:03 4 mg STAT ONE Administration Morphine Sulfate Confirm 08/20/24 13:26 Morphine Sulfate 4 Mg/Ml Injection Administered 08/20/24 13:27 Dose 4 mg .ROUTE .STK-MED ONE Morphine Sulfate 4 mg 08/20/24 17:03 08/20/24 17:07 Morphine Sulfate 4 Mg/Ml Injection IV 08/20/24 17:04 4 mg STAT ONE Administration Morphine Sulfate Confirm 08/20/24 17:06 Morphine Sulfate 4 Mg/Ml Injection Administered 08/20/24 17:07 Dose 4 mg .ROUTE .STK-MED ONE Lab/Rad Data: Laboratory Result Diagrams 08/20/24 12:53 08/20/24 12:53 Laboratory Results 08/20/24 08/20/24 08/20/24 Range/Units 17:02 12:53 12:53 WBC (3.98-10.04) x10^3/uL RBC (3.93-5.22) x10^6/uL Hgb (11.2-15.7) g/dL Hct (34.1-44.9) % MCV (79.4-94.8) fL MCH (25.6-32.2) pg MCHC (32.2-35.5) g/dL RDW (11.7-14.4) % Plt Count (182-369) x10^3/uL MPV (9.4-12.3) fL Gran % (34.0-71.1) % Immature Gran % (Auto) (0.001-0.429) % Nucleat RBC Rel Count (0.00-0.2) % Eos # (Auto) (0.04-0.36) x10^3/uL Immature Gran # (Auto) (0.001-0.031) x10^3u/L Absolute Lymphs (auto) (1.18-3.74) x10^3/uL Absolute Monos (auto) (0.24-0.86) x10^3/uL Absolute Nucleated RBC (0.00-0.012) x10^3u/L Lymphocytes % (19.3-51.7) % Monocytes % (4.7-12.5) % Eosinophils % (0.7-5.8) % Basophils % (0.1-1.2) % Absolute Granulocytes (1.56-6.13) x10^3/uL Basophils # (0.01-0.08) x10^3/uL PT 12.2 (9.4-12.5) SECONDS INR 1.13 (0.8-3.0) Sodium (135-145) mmol/L Potassium (3.5-5.1) mmol/L Chloride (98-107) mmol/L Carbon Dioxide (22-30) mmol/L Anion Gap (5-15) MEQ/L BUN (7-17) mg/dL Creatinine (0.52-1.04) mg/dL Estimated GFR ML/MIN Glucose (74-106) mg/dL Calcium (8.4-10.2) mg/dL Magnesium (1.6-2.3) mg/dL Total Bilirubin (0.2-1.3) mg/dL AST (14-36) U/L ALT (0-35) U/L Alkaline Phosphatase (38-126) U/L Troponin I < 0.012 < 0.012 (0.000-0.033) ng/mL NT-Pro-B Natriuret Pep (<300) pg/mL Serum Total Protein (6.3-8.2) g/dL Albumin (3.5-5.0) g/dL 08/20/24 08/20/24 Range/Units 12:53 12:53 WBC 10.0 (3.98-10.04) x10^3/uL RBC 4.98 (3.93-5.22) x10^6/uL Hgb 14.7 (11.2-15.7) g/dL Hct 43.8 (34.1-44.9) % MCV 88.0 (79.4-94.8) fL MCH 29.5 (25.6-32.2) pg MCHC 33.6 (32.2-35.5) g/dL RDW 12.6 (11.7-14.4) % Plt Count 220 (182-369) x10^3/uL MPV 9.9 (9.4-12.3) fL Gran % 87.2 H (34.0-71.1) % Immature Gran % (Auto) 0.8 H (0.001-0.429) % Nucleat RBC Rel Count 0.0 (0.00-0.2) % Eos # (Auto) 0.03 L (0.04-0.36) x10^3/uL Immature Gran # (Auto) 0.08 H (0.001-0.031) x10^3u/L Absolute Lymphs (auto) 0.82 L (1.18-3.74) x10^3/uL Absolute Monos (auto) 0.34 (0.24-0.86) x10^3/uL Absolute Nucleated RBC 0.00 (0.00-0.012) x10^3u/L Lymphocytes % 8.2 L (19.3-51.7) % Monocytes % 3.4 L (4.7-12.5) % Eosinophils % 0.3 L (0.7-5.8) % Basophils % 0.1 (0.1-1.2) % Absolute Granulocytes 8.76 H (1.56-6.13) x10^3/uL Basophils # 0.01 (0.01-0.08) x10^3/uL PT (9.4-12.5) SECONDS INR (0.8-3.0) Sodium 136 (135-145) mmol/L Potassium 4.7 (3.5-5.1) mmol/L Chloride 101 (98-107) mmol/L Carbon Dioxide 24 (22-30) mmol/L Anion Gap 15.9 H (5-15) MEQ/L BUN 18 H (7-17) mg/dL Creatinine 0.61 (0.52-1.04) mg/dL Estimated GFR 91.5 ML/MIN Glucose 345 H (74-106) mg/dL Calcium 9.2 (8.4-10.2) mg/dL Magnesium 1.9 (1.6-2.3) mg/dL Total Bilirubin 0.60 (0.2-1.3) mg/dL AST 35 (14-36) U/L ALT 21 (0-35) U/L Alkaline Phosphatase 82 (38-126) U/L Troponin I (0.000-0.033) ng/mL NT-Pro-B Natriuret Pep 1800 (<300) pg/mL Serum Total Protein 7.3 (6.3-8.2) g/dL Albumin 4.4 (3.5-5.0) g/dL LINICAL HISTORY: confusion COMPARISON: None. TECHNIQUE: An axial non-contrast CT scan of the brain was performed from the skull base to the high parietal region. One of the following dose-reduction techniques was utilized for this exam. Automated exposure control, adjustment of the mA and/or kV according to patient size, and use of iterative reconstruction. CT scan performed according to ALARA principles. Automated exposure control used during the exam. FINDINGS: A few tiny ill-defined [id number] areas are noted bilaterally in the subcortical and deep white matter, right more than left more in the frontal lobe, suggesting microvascular ischemic changes. The ventricular system, cortical sulci, and basal cisterns are prominent and consistent with senile changes. The brain parenchyma shows a normal appearance. Ortega-white matter differentiation is maintained. No midline shifts or deformity. No intracerebral or extra axial hematoma. Normal CT appearance of the posterior fossa structures, namely the cerebellar hemispheres, brainstem, and cerebellar peduncles. The bony structures in the skull base are unremarkable. There are no definite calvarium fractures. PatientID: [id number] Patient Name: FRED CRUZ Exam Date: 08/20/2024 Procedure: HEAD WITHOUT CONTRAST page 1 of 2 Opacification of the bilateral maxillary sinuses and anterior and middle ethmoid cells. Left frontal sinus. Hypoplastic right frontal sinus. Normal-appearing bilateral mastoid air cells IMPRESSION: 1. A few tiny ill-defined mba-[id number]-mcutvoskq areas are noted bilaterally in the subcortical and deep white matter, right more than left more in the frontal lobe, suggesting microvascular ischemic changes. However, the possibility of underlying age-indeterminate ischemic insult cannot be entirely excluded if clinically warranted, further evaluation with MRI with DWI images can be obtained. 2. No intra or extra-axial hematomas or parenchymal territorial hypodense areas suggest acute ischemic insult. 3. Early changes of stroke may not be detected on a CT scan. If there is a strong clinical suspicion of stroke, then an MRI with diffusion-weighted imaging is suggested. [facility] ER was called at [phone] at 11:34 AM PROVIDER RELATIONS SPECIALIST, 08/20/2024, and Dee, a Nurse, was informed regarding the stroke results. Electronically Signed by: Lacy Delgado MD. (08/20/2024 12:38:55 EST) - Progress Progress: improved Progress Note: 08/20/24 18:16 Patient's granddaughter wants patient to be transferred to [facility]. I called [facility] transfer center and there is a waiting list for the bed and she might get bed available tomorrow. Patient's granddaughter who is a nurse practitioner is advised to keep her grandmother grandmother with her or she could stay with her if symptoms arise she can take her to the [facility] or she can arrange outpatient MRI with help of her grandmother primary care physician. She understood verbalized instruction and agreed to take her grandmother home and she will either stay with her or her grandmother will stay with her. 08/20/24 18:27 Afterwards Grand daughter changed her mind and wants to keep her grandmother here for observation until bed available at [facility] Will see patient in: other (Transfer to [facility]) Counseled pt/family regarding: lab results, diagnosis, need for follow-up, rad results Medical Desision Making - Discussion of managment Care discussed with:: hospitalist ([facility]) - Diagnostic Testing Diagnostic test were ordered, analyzed, and reviewed by me: Yes Radiological Interpretation: Teleradiologist Report - Risk of complications Low Risk: Low risk of morbidity from additional dx testing or treatment - Departure Departure Disposition: Observation Clinical Impression: TIA (transient ischemic attack), Spell of generalized weakness, Chronic kidney disease (CKD) stage G3a/A1, moderately decreased glomerular filtration rate (GFR) between 45-59 mL/min/1.73 square meter and albuminuria creatinine ratio less than 30 mg/g Atrial fibrillation Qualifiers: Atrial fibrillation type: paroxysmal Qualified Code(s): I48.0 - Paroxysmal atrial fibrillation Condition: Stable Critical Care Time: Yes Critical Care Time(excluding separately billable procedures): Critical 30-74 mins Referrals: [facility] [Primary Care Provider] - Follow up with PCP 2 days Instructions: Transient Ischemic Attack (DC) Additional Instructions: Discharge/Care Plan FRED CRUZ was seen on 08/20/24 in the Emergency Room. The patient was counseled regarding Diagnosis,Lab results, Imaging studies, need for follow up and when to return to the Emergency Room. Prescriptions given: Discharge Note I have spoken with the patient and/or caregivers. I have explained the patient's condition, diagnosis and treatment plan based on the information available to me at this time. I have answered the patient's and/or caregiver's questions and addressed any concerns. The patient and/or caregivers have as good understanding of the patient's diagnosis, condition and treatment plan as can be expected at this point. The vital signs have been stable. The patient's condition is stable and appropriate for discharge from the emergency department. The patient will pursue further outpatient evaluation with the primary care physician or other designated or consulting physician as outlined in the discharge instructions. The patient and/or caregivers are agreeable to this plan of care and follow-up instructions have been explained in detail. The patient and/or caregivers have received these instruction. The patient/and or caregivers are aware that any significant change in condition or worsening of symptoms should prompt an immediate return to this or the closest emergency department or call 911. NANCYFRED DIALLO was seen on 08/20/24 n the Emergency Room. At that time you were treated for an emergent condition, during your visit Laboratory, Radiology and/or other procedures may have been ordered. It is very important that you follow-up with your Primary Care Physician MARLA MCKEON within the next 24-48 hours to review your Emergency Room visit and the final results of testing that was ordered. Some test results such as Urine Cultures, Blood Cultures, and other cultures if ordered will not be finalized for 24-48 hours. If you do not have a Primary Care Provider please call the medical records department at [phone] ext [phone] to obtain a copy of your results or you may sign into our patient portal to obtain these results by visiting us @ [email or web address] and completing the following steps: 1. Click on the Patient Portal link 2. Click the Patient Self Enrollment Link to complete the enrollment form and entering your 3. Once the enrollment form is completed you will receive an email with a temporary ID and password at the email address you provided. 4. Next choose a user name and password. Your user name must be at least 4 characters long and your password must be at least 4 characters long. 5. Choose a security question from the list and provide your answer to the question. If you already have signed into the Health Portal you may access your Health Care Information 12/01 by the following steps: 1. Login to our website @ [email or web address] 2. Enter your original user name and password. FAQS The [facility] Health Portal is an online tool that contains your Lab Results, Radiology Reports, Visit History, Discharge Instructions and Health Summary Lab and Radiology Results will not be available for 72 hours on the portal. The Portal is a secure site, passwords are encryted and URLs are re-written so they cannot be copied and pasted. You and authorized family members are the only ones who can access your Portal. Also there is a timeout feature that protects your information if you leave the Portal page open. If you have technical difficulty please use the Contact Us link on the page this will allow you to submit any questions you have regarding the Portal or you may contact the Medical Record Department at [phone] ext [phone].
[2024-08-20 13:21] LABS: ALBUMIN 4.4 g/dL (3.5-5.0); ANION GAP 15.9 MEQ/L (5-15); BILIRUBIN,TOTAL 0.6 mg/dL (0.2-1.3); Calcium 9.2 mg/dL (8.4-10.2); Creatinine 1 0.61 mg/dL (0.52-1.04); EST GLOMERULAR FILTRATION RATE 91.5 ML/MIN; MAGNESIUM 1.9 mg/dL (1.6-2.3); Potassium 4.7 mmol/L (3.5-5.1); Total Protein 7.3 g/dL (6.3-8.2)
[2024-08-20] MEDS: MORPHINE SULFATE 4 MG INJ IV ONE ×2 (13:26→17:07)
[2024-08-20] MEDS ORDERED: TORAdol 30 mg Injection ONE (13:26)
[2024-08-20] MEDS ORDERED: MORPHINE SULFATE 4 MG INJ ONE ×2 (13:26→17:06)
[2024-08-20] MEDS: TORAdol 30 mg Injection IV ONE (13:27)
[2024-08-20] MEDS ORDERED: PLAVIX Tablet PO SCH (22:00)
[2024-08-20] MEDS ORDERED: TYLENOL 325 MG PO PRN (22:02)
[2024-08-20] MEDS ORDERED: HUMALOG SQ PRN (22:02)
[2024-08-20] MEDS ORDERED: Requip 0.5 MG ONE (22:08)
[2024-08-20] MEDS ORDERED: Lantus Insulin ONE (22:10)
[2024-08-20] MEDS ORDERED: HEPARIN 5000 UNITS/0.5 ML (HIGH RISK MED) SQ SCH (22:14)
[2024-08-20] MEDS ORDERED: COREG 12.5 MG PO SCH (22:14)
[2024-08-20] MEDS ORDERED: Lantus Insulin SQ SCH (22:14)
[2024-08-20] MEDS: NON-FORMULARY ITEM (Ropinirole Hcl [Ropinirole Hcl] 1 MG Tablet) PO SCH (22:39)
[2024-08-20] MEDS: Lantus Insulin SQ SCH (22:40)
[2024-08-20] MEDS: HEPARIN 5000 UNITS/0.5 ML (HIGH RISK MED) SQ SCH (22:40)
[2024-08-20] MEDS: COREG 12.5 MG PO SCH (22:40)
[2024-08-20] MEDS: NORCO 10-325 MG PO PRN (22:51)
--- NOTE | 2024-08-20 23:10 | PCM.HP ---
History of Present Illness - Chief Complaint Chief Complaint: slurred speech, disturbed gait Date: 08/20/24 History of Present Illness: 79-year-old woman with a history of CVA, CAD, HTN, DM2, and breast cancer, who presents with acute onset of dysarthria and ataxia. Patient awoke from sleep this morning with severe dysarthria and severe gait instability. She was unable to walk, having to crawl on the floor. Daughter came and found her noted that patient seemed to be unable to bear any weight, although did not appear to have any focal weakness. Episode lasted around 2 hours, and has now almost completely resolved. No loss of consciousness, no muscle contractions or bowel or bladder incontinence. Patient notes that she has a history of a prior stroke when she was in labor at 29 years of age, but it had no further stroke symptoms since then. On arrival in the ED, she was noted to be in A-fib, although currently she is in sinus rhythm. 1 week prior to admission, patient had her pacemaker repositioned, and had noted some pain and decreased mobility since then, but no neurologic symptoms. She continues to have some spots in her vision, but no diplopia, no change in visual acuity. Of note, patient's granddaughter is a nurse practitioner at [facility] and has been attempting to get patient transferred of care. Patient has been accepted for a bed, but no bed will be available to the at least the morning. Patient's primary provider and care is up there and she would like to continue to receive care there. - Review of Systems All Other Systems: Reviewed and Negative Medications & Allergies Home Medications: Home Medication List Clopidogrel Bisulfate [PLAVIX Tablet] 75 mg PO UD 01/13/15 [History Confirmed 08/20/24] Hydrocodone/APAP 10/325 mg [[place] 10/325 MG TableT] 1 tab PO QID 01/13/15 [History Confirmed 08/20/24] carvediloL [Coreg] 25 mg PO BID 07/25/15 [History Confirmed 08/20/24] Ferrous Sulfate 325 mg PO UD 12/31/18 [History Confirmed 08/20/24] Multivitamin/Iron/Folic Acid [Centrum Adults Tablet] 1 each PO DAILY 12/31/18 [History Confirmed 08/20/24] Nitroglycerin 0.4 mg Tablet [Nitrostat 0.4 MG Tablet] 0.4 mg SL UD 12/31/18 [History Confirmed 08/20/24] Rosuvastatin Calcium [Crestor] 5 mg PO DAILY 12/31/18 [History Confirmed 08/20/24] lisinopriL [Zestril] 5 mg PO DAILY 12/31/18 [History Confirmed 08/20/24] Insulin Degludec [Tresiba Flextouch U-100] 40 unit SQ HS 08/20/24 [History Confirmed 08/20/24] Insulin Regular, Human [Humulin R] 5 units SQ TID 08/20/24 [History Confirmed 08/20/24] Ropinirole HCl 1 mg PO HS 08/20/24 [History Confirmed 08/20/24] Allergies/Adverse Reactions: Allergies Allergy/AdvReac Type Severity Reaction Status Date / Time No Known Drug Allergies Allergy Verified 08/20/24 12:43 - Past Medical History Past Medical History: Yes Neurological History: Stroke, TIA ENT History: No Pertinent History Cardiac History: Congestive Heart Failure, Myocardial Infarction ([place]) Respiratory History: No Pertinent History, CHF Endocrine Medical History: Diabetes Type II Musculoskelatal History: No Pertinent History GI Medical History: No Pertinent History History: No Pertinent History Pyscho-Social History: No Pertinent History Reproductive Disorders: Breast Cancer Comment: breast mastectomy shyam. 8yrs ago - Past Surgical History Past Surgical History: Yes Neuro Surgical History: No Pertinent History Cardiac History: CABG, Cardiac Catheterization, Internal Defibrillator, Pacemaker Respiratory Surgery: No Pertinent History GI Surgical History: No Pertinent History Genitourinary Surgical Hx: No Pertinent History Musculskeletal Surgical Hx: Orthopedic Surgery Female Surgical History: Hysterectomy, Mastectomy Other Surgical History: colonoscopy, shyam mastectomy 8 yrs ago,back ruptured disc in neck and back fusion Significant Family History: no pertinent family hx - Social History Smoking Status: Never smoker Exposure to second hand smoke: No Alcohol: None Drug Use: none - Social Determinants of Health Will the patient participate in the screening: Yes Do you worry about a steady place to live?: No Do you have any problems with any of the following?: No known problems In the past 12 months,have you had to go without utilities?: No Have you or anyone in your house had to go without enough: No Transportation Issues: No Has anyone in your support network made you feel unsafe?: No Does the patient want assistance with any of the above?: No - Physical Exam Vital Signs: Vital Signs - 24 hr Temp Pulse Resp BP BP Pulse Ox 08/20/24 20:32 97.5 F 97 H 16 137/63 99 08/20/24 20:00 94 H 22 111/48 08/20/24 19:45 92 H 22 124/60 08/20/24 19:31 93 H 22 103/71 08/20/24 19:17 95 H 22 123/69 08/20/24 19:02 101 H 22 155/96 08/20/24 18:45 91 H 22 145/84 72 L 08/20/24 18:30 88 22 135/87 92 L 08/20/24 18:28 97 08/20/24 18:15 91 H 21 143/75 78 L 08/20/24 18:03 89 20 136/66 77 L 08/20/24 18:00 90 17 150/124 66 L 08/20/24 17:45 92 H 15 131/86 78 L 08/20/24 17:30 92 H 17 134/95 77 L 08/20/24 17:15 91 H 22 136/71 95 08/20/24 17:00 88 16 125/78 67 L 08/20/24 16:53 89 21 142/59 93 L 08/20/24 16:46 90 14 136/103 78 L 08/20/24 16:30 90 20 105/71 71 L 08/20/24 16:15 89 20 114/74 72 L 08/20/24 16:05 86 18 145/85 98 08/20/24 16:04 91 H 15 63 L 08/20/24 16:01 95 H 16 61/48 81 L 08/20/24 15:45 87 15 144/76 96 08/20/24 15:31 91 H 19 143/65 77 L 08/20/24 15:17 83 23 155/81 95 08/20/24 14:49 148/94 08/20/24 14:47 83 17 156/112 99 08/20/24 14:46 103 H 22 158/85 98 08/20/24 14:31 83 13 160/53 95 08/20/24 14:16 89 21 151/116 85 L 08/20/24 14:00 85 16 143/83 08/20/24 13:47 82 14 144/103 100 08/20/24 13:31 66 19 137/78 81 L 08/20/24 13:30 53 L 13 96 08/20/24 13:20 20 99 08/20/24 13:18 60 25 H 94 L 08/20/24 13:01 65 17 126/69 74 L 08/20/24 12:47 59 L 17 161/66 96 08/20/24 12:35 61 17 148/58 94 L 08/20/24 12:24 71 21 148/58 97 Physical Exam GEN: Sitting up in bed in no acute distress. HENT: Normocephalic, atraumatic. Moist mucous membranes. EYES: Normal inspection, anicteric sclera, extraocular movements intact. NECK: Supple, full range of motion CV: Regular rate and rhythm, no murmurs, no gallops. No JVD or edema. PULM: Clear to auscultation bilaterally, no work of breathing. On room air. ABD: Nondistended, nontender. MSK: No joint effusions, full range of motion SKIN: No rashes, normal color. NEURO: Face symmetric, no focal motor or sensory deficits. PSYCH: Alert, oriented x 3 Results - Labs Lab/Micro Results: Lab Results-Last 24 Hours 08/20/24 08/20/24 08/20/24 Range/Units 12:53 12:53 12:53 WBC 10.0 (3.98-10.04) x10^3/uL RBC 4.98 (3.93-5.22) x10^6/uL Hgb 14.7 (11.2-15.7) g/dL Hct 43.8 (34.1-44.9) % MCV 88.0 (79.4-94.8) fL MCH 29.5 (25.6-32.2) pg MCHC 33.6 (32.2-35.5) g/dL RDW 12.6 (11.7-14.4) % Plt Count 220 (182-369) x10^3/uL MPV 9.9 (9.4-12.3) fL Gran % 87.2 H (34.0-71.1) % Immature Gran % (Auto) 0.8 H (0.001-0.429) % Nucleat RBC Rel Count 0.0 (0.00-0.2) % Eos # (Auto) 0.03 L (0.04-0.36) x10^3/uL Immature Gran # (Auto) 0.08 H (0.001-0.031) x10^3u/L Absolute Lymphs (auto) 0.82 L (1.18-3.74) x10^3/uL Absolute Monos (auto) 0.34 (0.24-0.86) x10^3/uL Absolute Nucleated RBC 0.00 (0.00-0.012) x10^3u/L Lymphocytes % 8.2 L (19.3-51.7) % Monocytes % 3.4 L (4.7-12.5) % Eosinophils % 0.3 L (0.7-5.8) % Basophils % 0.1 (0.1-1.2) % Absolute Granulocytes 8.76 H (1.56-6.13) x10^3/uL Basophils # 0.01 (0.01-0.08) x10^3/uL PT 12.2 (9.4-12.5) SECONDS INR 1.13 (0.8-3.0) Sodium 136 (135-145) mmol/L Potassium 4.7 (3.5-5.1) mmol/L Chloride 101 (98-107) mmol/L Carbon Dioxide 24 (22-30) mmol/L Anion Gap 15.9 H (5-15) MEQ/L BUN 18 H (7-17) mg/dL Creatinine 0.61 (0.52-1.04) mg/dL Estimated GFR 91.5 ML/MIN Glucose 345 H (74-106) mg/dL Calcium 9.2 (8.4-10.2) mg/dL Magnesium 1.9 (1.6-2.3) mg/dL Total Bilirubin 0.60 (0.2-1.3) mg/dL AST 35 (14-36) U/L ALT 21 (0-35) U/L Alkaline Phosphatase 82 (38-126) U/L Troponin I (0.000-0.033) ng/mL NT-Pro-B Natriuret Pep 1800 (<300) pg/mL Serum Total Protein 7.3 (6.3-8.2) g/dL Albumin 4.4 (3.5-5.0) g/dL 08/20/24 08/20/24 08/20/24 Range/Units 12:53 17:02 21:02 WBC (3.98-10.04) x10^3/uL RBC (3.93-5.22) x10^6/uL Hgb (11.2-15.7) g/dL Hct (34.1-44.9) % MCV (79.4-94.8) fL MCH (25.6-32.2) pg MCHC (32.2-35.5) g/dL RDW (11.7-14.4) % Plt Count (182-369) x10^3/uL MPV (9.4-12.3) fL Gran % (34.0-71.1) % Immature Gran % (Auto) (0.001-0.429) % Nucleat RBC Rel Count (0.00-0.2) % Eos # (Auto) (0.04-0.36) x10^3/uL Immature Gran # (Auto) (0.001-0.031) x10^3u/L Absolute Lymphs (auto) (1.18-3.74) x10^3/uL Absolute Monos (auto) (0.24-0.86) x10^3/uL Absolute Nucleated RBC (0.00-0.012) x10^3u/L Lymphocytes % (19.3-51.7) % Monocytes % (4.7-12.5) % Eosinophils % (0.7-5.8) % Basophils % (0.1-1.2) % Absolute Granulocytes (1.56-6.13) x10^3/uL Basophils # (0.01-0.08) x10^3/uL PT (9.4-12.5) SECONDS INR (0.8-3.0) Sodium (135-145) mmol/L Potassium (3.5-5.1) mmol/L Chloride (98-107) mmol/L Carbon Dioxide (22-30) mmol/L Anion Gap (5-15) MEQ/L BUN (7-17) mg/dL Creatinine (0.52-1.04) mg/dL Estimated GFR ML/MIN Glucose (74-106) mg/dL Calcium (8.4-10.2) mg/dL Magnesium (1.6-2.3) mg/dL Total Bilirubin (0.2-1.3) mg/dL AST (14-36) U/L ALT (0-35) U/L Alkaline Phosphatase (38-126) U/L Troponin I < 0.012 < 0.012 0.020 (0.000-0.033) ng/mL NT-Pro-B Natriuret Pep (<300) pg/mL Serum Total Protein (6.3-8.2) g/dL Albumin (3.5-5.0) g/dL Accuchecks Date 08/20/24 - Radiology Impressions Radiology Exams & Impressions: Radiology Procedures Category Date Time Status HEAD WITHOUT CONTRAST [CT] Stat Exams 08/20/24 12:[address] head a few tiny ill-defined hypodense areas in the bilateral subcortical and deep white matter, suggesting microvascular ischemic changes. Assessment/Plan (1) TIA (transient ischemic attack) Current Visit: Yes Status: Acute Assessment & Plan: 79-year-old woman with a history of CVA, DM2, HTN, and CAD, here with symptoms consistent with TIA versus quickly resolving stroke. ## CVA patient presents with dysarthria and ataxia that resolved after 2 hours, consistent with TIA. She has multiple risk factors including age, prior stroke, diabetes, and hypertension, and it appears she had a recent episode of A-fib while in the ED. Patient has requested her care at [facility], and has been accepted by them, but is currently pending a bed. Place in observation Monitor on telemetry Will defer imaging for now as patient is supposed to be heading to [place] in the morning If patient remains here through Thursday, will order MRI brain, MRA head and neck, echocardiogram Will go ahead and check hemoglobin A1c and lipid panel Increase Plavix to daily (she was taking it 3 times a week previously Continue Crestor ## Possible A-fib current sinus rhythm, and A-fib not documented. Monitor on telemetry ## Type 2 diabetes per patient, her last A1c was well-controlled. Continue insulin glargine 40 units QHS, and Humulin R 5 units TID Placed on moderate dose sliding scale insulin Diabetic diet Check hemoglobin A1c ## Hypertension blood pressure initially elevated in the setting of acute symptoms, but currently controlled. Resume home carvedilol 25 BID, lisinopril 5 ## CAD, history of CVA Continue carvedilol, Crestor, Plavix, adjusted as above CODE STATUS: Full code Prophylaxis: Subcutaneous heparin Diet: Diabetic Dispo: Place in observation, but pending transfer to [facility] Entirety of encounter took place via live audio/video telemedicine device, with remote physician and patient in hospital, with the assistance of bedside nurse. Code(s): G45.9 - TRANSIENT CEREBRAL ISCHEMIC ATTACK, UNSPECIFIED Telemedicine Encounter - Telemedicine Encounter Telemedicine Encounter: "The entirety of this encounter was performed via Telemedicine" This visit was performed using real-time audio and video connection between my location and thepatients locationwith the assistance of a surrogateat the patients location. Written or verbal consent was obtained from the patient/guardian to perform this visit [facility] technology. Any patient questions regarding the telemedicine interaction were answered.
[2024-08-21 05:57] LABS: Hematocrit 34.1 % (34.1-44.9); Hemoglobin 11.3 g/dL (11.2-15.7); Mean Cell Volume 90.5 fL (79.4-94.8); Mean Corpuscular Hgb Concent. 33.1 g/dL (32.2-35.5); Mean Platelet Volume 10.3 fL (9.4-12.3); Platelet Count 173 x10^3/uL (182-369); Red Blood Count 3.77 x10^6/uL (3.93-5.22); Red Cell Distribution Width 13.2 % (11.7-14.4); White Blood Count 8.8 x10^3/uL (3.98-10.04)
[2024-08-21 06:32] LABS: BLOOD UREA NITROGEN 26 mg/dL (7-17); CHLORIDE 102 mmol/L (98-107); Calcium 8.5 mg/dL (8.4-10.2); Carbon Dioxide 25 mmol/L (22-30); Cholesterol 93 mg/dL (50-200); Creatinine 1 0.77 mg/dL (0.52-1.04); EST GLOMERULAR FILTRATION RATE 78.9 ML/MIN; Glucose 78 mg/dL (74-106); HDL CHOLESTEROL 42 mg/dL (40-60); Potassium 4.2 mmol/L (3.5-5.1); SODIUM 134 mmol/L (135-145); TRIGLYCERIDE 120 mg/dL (30-150)
[2024-08-21 06:37] LABS: LDL, DIRECT < 30 mg/dL (30-100)
[2024-08-21 07:26] LABS: Appearance Clear (Clear); Bacteria None Seen /HPF (None Seen); Bilirubin Negative (Negative); Blood Negative (Negative); Epithelial Cells Rare /HPF (None Seen); Glucose, Urine Negative (Negative); Ketones Negative (Negative); Leukocyte Esterase Negative (Negative); Nitrite Negative (Negative); Protein,Urine Dip Negative (Negative); RBC 0-2 /HPF (0-5); Specific Gravity 1.015 (1.005-1.030); Urobilinogen 0.2 mg/dL (0.2); WBC 0-2 /HPF (0-5)
[2024-08-21] MEDS: Zestril 5 MG PO SCH (09:16)
[2024-08-21] MEDS: Zocor 10MG PO SCH (09:17)
[2024-08-21] MEDS: PLAVIX Tablet PO SCH (09:17)
[2024-08-21] MEDS: HUMULIN R SQ SCH (09:20)
--- NOTE | 2024-08-21 09:42 | XRAY ---
CLINICAL HISTORY: tia COMPARISON: CT head 08/20/2024 TECHNIQUE: CT angiography of the head was performed following the intravenous administration. Contiguous axial images were obtained from the base of the skull to the vertex. Coronal and sagittal reformatted images were also reviewed. One of the following dose-reduction techniques was utilized for this exam. Automated exposure control, adjustment of the mA and/or kV according to patient size, and use of iterative reconstruction. FINDINGS: Suboptimal study, no 3D images, MIP, or thin cuts. The plain study is not available. Intracranial Arteries: The intracranial arteries, including the right anterior cerebral arteries, middle cerebral arteries, posterior cerebral arteries, basilar artery, and vertebral arteries, are all patent without evidence of significant stenosis, aneurysm, or dissection. There is no evidence of vascular malformations. The left anterior cerebral artery, A1 segment, shows smooth narrowing of the segment with normal distal segments of the artery and no atherosclerotic changes. Suggesting normal varient. [place]: The [place] is intact with no anatomical variations or abnormalities noted. All segments are well-visualized and normal in appearance. Venous System: The visualized portions of the venous system, including the dural venous sinuses, are patent with no evidence of thrombosis. Brain Parenchyma: The brain parenchyma shows no evidence of acute infarction, hemorrhage, or mass effect. The ventricles and sulci are mildly prominent, with preserved configuration suggesting senile changes. Periventricular chronic microvascular ischemic changes noted. Bones: The bony structures of the skull are intact without evidence of fracture or destructive lesions. Soft Tissues: The visualized soft tissues of the head are unremarkable. Additional Findings: bilaterally opacified maxillary sinuses and anterior ethmoid air cells. IMPRESSION: 1. No evidence of other significant vascular abnormalities, acute infarct, or hemorrhage. 2. Senile changes of the brain parenchyma. 3. Chronic microvascular ischemic changes. 4. No interval changes. Electronically Signed by: Layc Delgado MD. (08/21/2024 09:37:32 EST)
[2024-08-21] MEDS ORDERED: COREG 12.5 MG PO SCH (10:00)
[2024-08-21] MEDS ORDERED: HEPARIN 5000 UNITS/0.5 ML (HIGH RISK MED) SQ SCH (10:00)
--- NOTE | 2024-08-21 10:13 | PCM.DS ---
Discharge Summary Date of Admission: 08/20/24 19:54 Date of Discharge: 08/21/24 Admitting Physician: ARLENE BARON MD Primary Care Provider: MARLA MCKEON Allergies Allergies No Known Drug Allergies Allergy (Verified 08/20/24 12:43) Hospital Summary - Hospital Course Hospital Course: 79-year-old woman with a history of CVA, CAD, HTN, DM2, and breast cancer. She presented to the ER on 08/20/24 with acute onset of dysarthria and ataxia. Patient awoke from sleep with severe dysarthria and severe gait instability. She was unable to walk, having to crawl on the floor. Daughter came and found her noted that patient seemed to be unable to bear any weight, although did not appear to have any focal weakness. Episode lasted around 2 hours, and has now almost completely resolved. No loss of consciousness, no muscle contractions or bowel or bladder incontinence. Patient notes that she has a history of a prior stroke when she was in labor at 29 years of age, but it had no further stroke symptoms since then. On arrival in the ED, she was noted to be in A-fib, although currently she is in sinus rhythm. 1 week prior to admission, patient had her pacemaker repositioned, and had noted some pain and decreased mobility since then, but no neurologic symptoms. She continues to have some spots in her vision, but no diplopia, no change in visual acuity. Of note, patient's granddaughter is a nurse practitioner at [facility] and has been attempting to get patient transferred of care. Patient has been accepted for a bed, but no bed will be available to the at least early afternoon. 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 Neuro exam is non-concerning. She reports seeing black spots and has a H/A. CTA ordered for further eval and negative. We are unable to do IA, MRA, or echo on the weekends. She denies any further concerns at this time. - Vitals & Intake/Output Vital Signs: Vital Signs Temperature 97.5 F 08/21/24 07:35 Pulse Rate 87 08/21/24 07:35 Respiratory Rate 16 08/21/24 08:00 Blood Pressure 119/53 08/21/24 07:35 O2 Sat by Pulse Oximetry 98 08/21/24 07:35 Intake & Output: Intake & Output 08/18/24 08/19/24 08/20/24 08/21/24 11:59 11:59 11:59 11:59 Intake Total 720 Balance 720 Weight 58.967 kg - Lab Result Diagrams: 08/21/24 05:52 08/21/24 05:52 Lab Results-Last 24 Hrs: Lab Results-Last 24 Hours 08/20/24 08/20/24 08/20/24 Range/Units 07:17 12:53 12:53 WBC 10.0 (3.98-10.04) x10^3/uL RBC 4.98 (3.93-5.22) x10^6/uL Hgb 14.7 (11.2-15.7) g/dL Hct 43.8 (34.1-44.9) % MCV 88.0 (79.4-94.8) fL MCH 29.5 (25.6-32.2) pg MCHC 33.6 (32.2-35.5) g/dL RDW 12.6 (11.7-14.4) % Plt Count 220 (182-369) x10^3/uL MPV 9.9 (9.4-12.3) fL Gran % 87.2 H (34.0-71.1) % Immature Gran % (Auto) 0.8 H (0.001-0.429) % Nucleat RBC Rel Count 0.0 (0.00-0.2) % Eos # (Auto) 0.03 L (0.04-0.36) x10^3/uL Immature Gran # (Auto) 0.08 H (0.001-0.031) x10^3u/L Absolute Lymphs (auto) 0.82 L (1.18-3.74) x10^3/uL Absolute Monos (auto) 0.34 (0.24-0.86) x10^3/uL Absolute Nucleated RBC 0.00 (0.00-0.012) x10^3u/L Lymphocytes % 8.2 L (19.3-51.7) % Monocytes % 3.4 L (4.7-12.5) % Eosinophils % 0.3 L (0.7-5.8) % Basophils % 0.1 (0.1-1.2) % Absolute Granulocytes 8.76 H (1.56-6.13) x10^3/uL Basophils # 0.01 (0.01-0.08) x10^3/uL PT (9.4-12.5) SECONDS INR (0.8-3.0) Sodium 136 (135-145) mmol/L Potassium 4.7 (3.5-5.1) mmol/L Chloride 101 (98-107) mmol/L Carbon Dioxide 24 (22-30) mmol/L Anion Gap 15.9 H (5-15) MEQ/L BUN 18 H (7-17) mg/dL Creatinine 0.61 (0.52-1.04) mg/dL Estimated GFR 91.5 ML/MIN Glucose 345 H (74-106) mg/dL Hemoglobin A1c (4.5-6.0) % Calcium 9.2 (8.4-10.2) mg/dL Magnesium 1.9 (1.6-2.3) mg/dL Total Bilirubin 0.60 (0.2-1.3) mg/dL AST 35 (14-36) U/L ALT 21 (0-35) U/L Alkaline Phosphatase 82 (38-126) U/L Troponin I (0.000-0.033) ng/mL NT-Pro-B Natriuret Pep 1800 (<300) pg/mL Serum Total Protein 7.3 (6.3-8.2) g/dL Albumin 4.4 (3.5-5.0) g/dL Triglycerides (30-150) mg/dL Cholesterol (50-200) mg/dL LDL Cholesterol (30-100) mg/dL HDL Cholesterol (40-60) mg/dL Heart Disease Risk Ratio Urine Color Yellow (Yellow) Urine Appearance Clear (Clear) Urine pH 5.0 (4.6-8.0) Ur Specific [place] 1.015 (1.005-1.030) Urine Protein Negative (Negative) Urine Glucose (UA) Negative (Negative) mg/dL Urine Ketones Negative (Negative) Urine Blood Negative (Negative) Urine Nitrite Negative (Negative) Urine Bilirubin Negative (Negative) Urine Urobilinogen 0.2 (0.2) mg/dL Ur Leukocyte Esterase Negative (Negative) U Hyaline Cast (Auto) 3-5 A (0-2) /LPF Urine Microscopic RBC 0-2 (0-5) /HPF Urine Microscopic WBC 0-2 (0-5) /HPF Ur Epithelial Cells Rare (None Seen) /HPF Urine Bacteria None Seen (None Seen) /HPF Urine Culture Reflexed ORDERED SEPARATELY (NO) 08/20/24 08/20/24 08/20/24 Range/Units 12:53 12:53 17:02 WBC (3.98-10.04) x10^3/uL RBC (3.93-5.22) x10^6/uL Hgb (11.2-15.7) g/dL Hct (34.1-44.9) % MCV (79.4-94.8) fL MCH (25.6-32.2) pg MCHC (32.2-35.5) g/dL RDW (11.7-14.4) % Plt Count (182-369) x10^3/uL MPV (9.4-12.3) fL Gran % (34.0-71.1) % Immature Gran % (Auto) (0.001-0.429) % Nucleat RBC Rel Count (0.00-0.2) % Eos # (Auto) (0.04-0.36) x10^3/uL Immature Gran # (Auto) (0.001-0.031) x10^3u/L Absolute Lymphs (auto) (1.18-3.74) x10^3/uL Absolute Monos (auto) (0.24-0.86) x10^3/uL Absolute Nucleated RBC (0.00-0.012) x10^3u/L Lymphocytes % (19.3-51.7) % Monocytes % (4.7-12.5) % Eosinophils % (0.7-5.8) % Basophils % (0.1-1.2) % Absolute Granulocytes (1.56-6.13) x10^3/uL Basophils # (0.01-0.08) x10^3/uL PT 12.2 (9.4-12.5) SECONDS INR 1.13 (0.8-3.0) Sodium (135-145) mmol/L Potassium (3.5-5.1) mmol/L Chloride (98-107) mmol/L Carbon Dioxide (22-30) mmol/L Anion Gap (5-15) MEQ/L BUN (7-17) mg/dL Creatinine (0.52-1.04) mg/dL Estimated GFR ML/MIN Glucose (74-106) mg/dL Hemoglobin A1c (4.5-6.0) % Calcium (8.4-10.2) mg/dL Magnesium (1.6-2.3) mg/dL Total Bilirubin (0.2-1.3) mg/dL AST (14-36) U/L ALT (0-35) U/L Alkaline Phosphatase (38-126) U/L Troponin I < 0.012 < 0.012 (0.000-0.033) ng/mL NT-Pro-B Natriuret Pep (<300) pg/mL Serum Total Protein (6.3-8.2) g/dL Albumin (3.5-5.0) g/dL Triglycerides (30-150) mg/dL Cholesterol (50-200) mg/dL LDL Cholesterol (30-100) mg/dL HDL Cholesterol (40-60) mg/dL Heart Disease Risk Ratio Urine Color (Yellow) Urine Appearance (Clear) Urine pH (4.6-8.0) Ur Specific [place] (1.005-1.030) Urine Protein (Negative) Urine Glucose (UA) (Negative) mg/dL Urine Ketones (Negative) Urine Blood (Negative) Urine Nitrite (Negative) Urine Bilirubin (Negative) Urine Urobilinogen (0.2) mg/dL Ur Leukocyte Esterase (Negative) U Hyaline Cast (Auto) (0-2) /LPF Urine Microscopic RBC (0-5) /HPF Urine Microscopic WBC (0-5) /HPF Ur Epithelial Cells (None Seen) /HPF Urine Bacteria (None Seen) /HPF Urine Culture Reflexed (NO) 08/20/24 08/21/24 08/21/24 Range/Units 21:02 05:52 05:52 WBC 8.8 (3.98-10.04) x10^3/uL RBC 3.77 L (3.93-5.22) x10^6/uL Hgb 11.3 D (11.2-15.7) g/dL Hct 34.1 (34.1-44.9) % MCV 90.5 (79.4-94.8) fL MCH 30.0 (25.6-32.2) pg MCHC 33.1 (32.2-35.5) g/dL RDW 13.2 (11.7-14.4) % Plt Count 173 L (182-369) x10^3/uL MPV 10.3 (9.4-12.3) fL Gran % (34.0-71.1) % Immature Gran % (Auto) (0.001-0.429) % Nucleat RBC Rel Count (0.00-0.2) % Eos # (Auto) (0.04-0.36) x10^3/uL Immature Gran # (Auto) (0.001-0.031) x10^3u/L Absolute Lymphs (auto) (1.18-3.74) x10^3/uL Absolute Monos (auto) (0.24-0.86) x10^3/uL Absolute Nucleated RBC (0.00-0.012) x10^3u/L Lymphocytes % (19.3-51.7) % Monocytes % (4.7-12.5) % Eosinophils % (0.7-5.8) % Basophils % (0.1-1.2) % Absolute Granulocytes (1.56-6.13) x10^3/uL Basophils # (0.01-0.08) x10^3/uL PT (9.4-12.5) SECONDS INR (0.8-3.0) Sodium 134 L (135-145) mmol/L Potassium 4.2 (3.5-5.1) mmol/L Chloride 102 (98-107) mmol/L Carbon Dioxide 25 (22-30) mmol/L Anion Gap 11.0 (5-15) MEQ/L BUN 26 H (7-17) mg/dL Creatinine 0.77 (0.52-1.04) mg/dL Estimated GFR 78.9 ML/MIN Glucose 78 (74-106) mg/dL Hemoglobin A1c (4.5-6.0) % Calcium 8.5 (8.4-10.2) mg/dL Magnesium (1.6-2.3) mg/dL Total Bilirubin (0.2-1.3) mg/dL AST (14-36) U/L ALT (0-35) U/L Alkaline Phosphatase (38-126) U/L Troponin I 0.020 (0.000-0.033) ng/mL NT-Pro-B Natriuret Pep (<300) pg/mL Serum Total Protein (6.3-8.2) g/dL Albumin (3.5-5.0) g/dL Triglycerides 120 (30-150) mg/dL Cholesterol 93 (50-200) mg/dL LDL Cholesterol < 30 L (30-100) mg/dL HDL Cholesterol 42 (40-60) mg/dL Heart Disease Risk Ratio 2.0 Urine Color (Yellow) Urine Appearance (Clear) Urine pH (4.6-8.0) Ur Specific [place] (1.005-1.030) Urine Protein (Negative) Urine Glucose (UA) (Negative) mg/dL Urine Ketones (Negative) Urine Blood (Negative) Urine Nitrite (Negative) Urine Bilirubin (Negative) Urine Urobilinogen (0.2) mg/dL Ur Leukocyte Esterase (Negative) U Hyaline Cast (Auto) (0-2) /LPF Urine Microscopic RBC (0-5) /HPF Urine Microscopic WBC (0-5) /HPF Ur Epithelial Cells (None Seen) /HPF Urine Bacteria (None Seen) /HPF Urine Culture Reflexed (NO) 08/21/24 Range/Units 05:52 WBC (3.98-10.04) x10^3/uL RBC (3.93-5.22) x10^6/uL Hgb (11.2-15.7) g/dL Hct (34.1-44.9) % MCV (79.4-94.8) fL MCH (25.6-32.2) pg MCHC (32.2-35.5) g/dL RDW (11.7-14.4) % Plt Count (182-369) x10^3/uL MPV (9.4-12.3) fL Gran % (34.0-71.1) % Immature Gran % (Auto) (0.001-0.429) % Nucleat RBC Rel Count (0.00-0.2) % Eos # (Auto) (0.04-0.36) x10^3/uL Immature Gran # (Auto) (0.001-0.031) x10^3u/L Absolute Lymphs (auto) (1.18-3.74) x10^3/uL Absolute Monos (auto) (0.24-0.86) x10^3/uL Absolute Nucleated RBC (0.00-0.012) x10^3u/L Lymphocytes % (19.3-51.7) % Monocytes % (4.7-12.5) % Eosinophils % (0.7-5.8) % Basophils % (0.1-1.2) % Absolute Granulocytes (1.56-6.13) x10^3/uL Basophils # (0.01-0.08) x10^3/uL PT (9.4-12.5) SECONDS INR (0.8-3.0) Sodium (135-145) mmol/L Potassium (3.5-5.1) mmol/L Chloride (98-107) mmol/L Carbon Dioxide (22-30) mmol/L Anion Gap (5-15) MEQ/L BUN (7-17) mg/dL Creatinine (0.52-1.04) mg/dL Estimated GFR ML/MIN Glucose (74-106) mg/dL Hemoglobin A1c 5.16 (4.5-6.0) % Calcium (8.4-10.2) mg/dL Magnesium (1.6-2.3) mg/dL Total Bilirubin (0.2-1.3) mg/dL AST (14-36) U/L ALT (0-35) U/L Alkaline Phosphatase (38-126) U/L Troponin I (0.000-0.033) ng/mL NT-Pro-B Natriuret Pep (<300) pg/mL Serum Total Protein (6.3-8.2) g/dL Albumin (3.5-5.0) g/dL Triglycerides (30-150) mg/dL Cholesterol (50-200) mg/dL LDL Cholesterol (30-100) mg/dL HDL Cholesterol (40-60) mg/dL Heart Disease Risk Ratio Urine Color (Yellow) Urine Appearance (Clear) Urine pH (4.6-8.0) Ur Specific [place] (1.005-1.030) Urine Protein (Negative) Urine Glucose (UA) (Negative) mg/dL Urine Ketones (Negative) Urine Blood (Negative) Urine Nitrite (Negative) Urine Bilirubin (Negative) Urine Urobilinogen (0.2) mg/dL Ur Leukocyte Esterase (Negative) U Hyaline Cast (Auto) (0-2) /LPF Urine Microscopic RBC (0-5) /HPF Urine Microscopic WBC (0-5) /HPF Ur Epithelial Cells (None Seen) /HPF Urine Bacteria (None Seen) /HPF Urine Culture Reflexed (NO) Micro Results-Entire Visit: Accuchecks Date 08/21/24 Date 08/20/24 Date 08/20/24 Time 07:34 Time 21:30 - Radiology Exams Ordered Rad Exams-Entire Visit: Radiology Procedures Category Date Time Status CTA HEAD W AND/OR WO CONTRAST [CT] Stat Exams 08/21/24 08:56 Completed HEAD WITHOUT CONTRAST [CT] Stat Exams 08/20/24 12:13 Completed Discharge Exam General Appearance: no apparent distress, alert Neurologic Exam: alert, oriented x 3, cooperative, normal mood/affect, nml cerebellar function, sensation nml, other (vision changes), No motor deficits Eye Exam: PERRL, EOMI, eyes nml inspection Ears, Nose, Throat Exam: normal ENT inspection, pharynx normal, moist mucous membranes Neck Exam: normal inspection, non-tender, supple, full range of motion Respiratory Exam: normal breath sounds, lungs clear, No respiratory distress Cardiovascular Exam: regular rate/rhythm, normal heart sounds Gastrointestinal/Abdomen Exam: soft, No tenderness, No mass Pelvic Exam: deferred Rectal Exam: deferred Back Exam: normal inspection, normal range of motion, No CVA tenderness, No vertebral tenderness Extremity Exam: normal inspection, normal range of motion Skin Exam: normal color, warm, dry Final Diagnosis/Problem List - Final Discharge Diagnosis/Problem (1) TIA (transient ischemic attack) Current Visit: Yes Status: Acute Assessment & Plan: patient presents with dysarthria and ataxia that resolved after 2 hours, consistent with TIA. She has multiple risk factors including age, prior stroke, diabetes, and hypertension, and it appears she had a recent episode of A-fib while in the ED. Patient has requested her care at [facility], and has been accepted by them, but is currently pending a bed. Place in observation Monitor on telemetry Will defer imaging for now as patient is supposed to be heading to [place] in the morning If patient remains here through Thursday, will order MRI brain, MRA head and neck, echocardiogram Hemoglobin A1c 5.16 - lipid panel reviewed and non-concerning Increase Plavix to daily (she was taking it 3 times a week previously) Continue Crestor - Pt states + vision changes seeing black spots and H/A - CTA negative - CT head: IMPRESSION: 1. A few tiny ill-defined [id number] areas are noted bilaterally in the subcortical and deep white matter, right more than left more in the frontal lobe, suggesting microvascular ischemic changes. However, the possibility of underlying age-indeterminate ischemic insult cannot be entirely excluded if clinically warranted, further evaluation with MRI with DWI images can be obtained. 2. No intra or extra-axial hematomas or parenchymal territorial hypodense areas suggest acute ischemic insult. 3. Early changes of stroke may not be detected on a CT scan. If there is a strong clinical suspicion of stroke, then an MRI with diffusion-weighted imaging is suggested Code(s): G45.9 - TRANSIENT CEREBRAL ISCHEMIC ATTACK, UNSPECIFIED (2) Vision changes Current Visit: Yes Status: Acute Assessment & Plan: - Pt reports seeing black spots since event yesterday morning Code(s): H53.9 - UNSPECIFIED VISUAL DISTURBANCE (3) HTN (hypertension) Current Visit: Yes Status: Chronic Assessment & Plan: - BP stable continue home meds Code(s): I10 - ESSENTIAL (PRIMARY) HYPERTENSION (4) CAD (coronary artery disease) Current Visit: Yes Status: Chronic Assessment & Plan: Continue carvedilol, Crestor, Plavix, adjusted as above Code(s): I25.10 - ATHSCL HEART DISEASE OF [place] CORONARY ARTERY W/O ANG PCTRS (5) Postsurgical cardiac pacemaker in situ Current Visit: Yes Status: Acute Assessment & Plan: - recent change of placement of pacemaker this past week Code(s): Z95.0 - PRESENCE OF CARDIAC PACEMAKER (6) Chronic headaches Current Visit: Yes Status: Chronic Assessment & Plan: - Tylenol PRN Code(s): R51.9 - HEADACHE, UNSPECIFIED; G89.29 - OTHER CHRONIC PAIN (7) Atrial fibrillation Current Visit: Yes Status: Acute Assessment & Plan: - Seen on EKG on admission- poor quality - Event monitor does not shows any concerns. - Tele - Not seen on Tele since admission Code(s): I48.91 - UNSPECIFIED ATRIAL FIBRILLATION (8) Type II diabetes mellitus Current Visit: Yes Status: Chronic Assessment & Plan: Per patient, her last A1c was well-controlled. Continue insulin glargine 40 units QHS, and Humulin R 5 units TID Placed on moderate dose sliding scale insulin Diabetic diet Hemoglobin A1c 5.16 - Discharge Discharge Date: 08/21/24 Disposition: DC TO [facility] Condition: Stable Prescriptions: New Clopidogrel Bisulfate [PLAVIX Tablet] 75 mg PO DAILY tablet Acetaminophen 325 mg [Tylenol 325 mg] 650 mg PO Q6H PRN PRN tablet PRN Reason: Pain And/Or Fever Continue Hydrocodone/APAP 10/325 mg [[place] 10/325 MG TableT] 1 tab PO QID carvediloL [Coreg] 25 mg PO BID Rosuvastatin Calcium [Crestor] 5 mg PO DAILY Multivitamin/Iron/Folic Acid [Centrum Adults Tablet] 1 each PO DAILY Nitroglycerin 0.4 mg Tablet [Nitrostat 0.4 MG Tablet] 0.4 mg SL UD Ferrous Sulfate 325 mg PO UD lisinopriL [Zestril] 5 mg PO DAILY Insulin Degludec [Tresiba Flextouch U-100] 40 unit SQ HS Insulin Regular, Human [Humulin R] 5 units SQ TID Ropinirole HCl 1 mg PO HS Discontinued Clopidogrel Bisulfate [PLAVIX Tablet] 75 mg PO UD Follow up with: MARLA MCKEON [employer]EL[employer] [Primary Care Provider] -
[2024-08-21] MEDS: TYLENOL 325 MG PO STA (11:37)
[2024-08-21 20:20] VITALS: BP 131/60; PULSE 94; RESP 12; TEMP 97.5; O2SAT 96
[2024-08-21] MEDS ORDERED: Requip 0.5 MG PO SCH (22:00)
[2024-08-21] MEDS ORDERED: Lantus Insulin SQ SCH (22:00)
[2024-08-22] MEDS ORDERED: FEOSOL 325 MG PO SCH (10:00)
== END 2024-08-21 21:40 | disposition home or self-care (01) ==
LOC: ED 12:12 → MED SURG 19:54
PROVIDERS: ADMIT Internal Medicine; ATTEND Internal Medicine
DX: G45.9 Transient cerebral ischemic attack, unspecified (principal); H53.9 Unspecified visual disturbance; I10 Essential (primary) hypertension; I25.10 Atherosclerotic heart disease of native coronary artery without angina pectoris; Z95.0 Presence of cardiac pacemaker; R51.9 Headache, unspecified; G89.29 Other chronic pain; I48.91 Unspecified atrial fibrillation; E11.9 Type 2 diabetes mellitus without complications; Z79.01 Long term (current) use of anticoagulants; Z79.899 Other long term (current) drug therapy; Z86.73 Personal history of transient ischemic attack (TIA), and cerebral infarction without residual deficits; Z85.3 Personal history of malignant neoplasm of breast
CPT/HCPCS: 36415; 70450; 70496; 80048; 80053; 80061; 81001; 83036; 83721; 83735; 83880; 84484; 85025; 85027; 85610; 87077; 87086; 87186; 93005; 93041; 93268; 96374; 96375; 99291; G0378; Q3014; 99285; J1644; J1815; J1885; J2270; A9270-GY

== ENCOUNTER 2025-05-10 07:59 | Day surgery (SDC) | payer MEDICARE ==
[2025-05-10] MEDS ORDERED: methylPREDNISolone acetate IM ONE (08:00)
[2025-05-10] MEDS ORDERED: BUPIVACAINE 0.5% VIAL IJ ONE (08:00)
[2025-05-10] MEDS ORDERED: D50W 50 ml Abboject IV ONE (09:15)
[2025-05-10] MEDS ORDERED: propofoL IV ONE (10:05)
--- NOTE | 2025-05-10 12:08 | XRAY ---
Indication: Bilateral SI joint injection. Intraoperative fluoroscopy provided for 28 seconds. 2 digital spot image submitted for interpretation demonstrates posterior needle tip projecting over left and right SI joints. Small amount of contrast injected for both needle tip placement. Correlate with intraoperative findings/report.
--- NOTE | 2025-05-10 13:30 | XRAY ---
28 seconds of fluoroscopy was used in surgery for a bilateral sacroiliac joint injection.
[2025-05-10] MEDS ORDERED: Lactated Ringers 1,000 ML IV ONE (13:34)
== END 2025-05-10 10:38 | disposition home or self-care (01) ==
LOC: SDC-PAIN 07:59
PROVIDERS: ATTEND Psychiatry & Neurology Pain Medicine
DX: M46.1 Sacroiliitis, not elsewhere classified (principal); E11.9 Type 2 diabetes mellitus without complications